=== PATIENT | female | born 1950 | race Caucasian/White ===

== ENCOUNTER 2025-03-11 21:41 | Emergency (ER) | payer MEDICARE, OTHER, SELFPAY ==
[2025-03-11 21:49] VITALS: BP 140/84
[2025-03-11 21:50] VITALS: BP 139/83
[2025-03-11 23:02] VITALS: BP 129/81
[2025-03-12 01:46] VITALS: BP 117/78
[2025-03-12 03:00] VITALS: BP 90/54
[2025-03-12 03:15] LABS: % Basophils 0.4 % (0-2); % Eosinophils 1.7 % (0-6); % Immature Granulocytes 0.3 % (0-0.5); % Lymphocytes 25.6 % (20.5-51.1); % Monocytes 9.8 % (1.7-9.3); % Neutrophils 62.2 % (42.2-75.2); Absolute Eosinophils 0.2 10^3/uL (0-0.7); Absolute Lymphocytes 2.7 10^3/uL (1.2-3.4); Absolute Neutrophils 6.6 10^3/uL (1.4-6.5); Hematocrit 36.5 % (37.0-47.0); Hemoglobin 11.5 g/dL (12.0-16.0); Mean Corp Hgb Conc. 31.5 g/dL (33.0-37.0); Mean Corpuscular Hgb 29.9 pg (27.0-31.0); Mean Corpuscular Volume 94.8 fL (81.0-99.0); Mean Platelet Volume 9.8 fL (7.4-10.4); Nucleated Red Blood Cells % 0 %; Platelet Count 238 10^3/uL (130-400); Red Blood Cell Count 3.85 10^6/uL (4.20-5.40); Red Cell Dist. Width 12.6 % (11.5-14.5); White Blood Cell Count 10.6 10^3/uL (4.8-10.8)
[2025-03-12 03:37] LABS: AST (SGOT) 13 U/L (14-36); Albumin 3.9 g/dl (3.5-5.0); Alkaline Phosphatase 58 U/L (38-126); Blood Urea Nitrogen 35 mg/dl (7-17); Carbon Dioxide 33 mmol/L (22-30); Chloride 104 mmol/L (98-107); Glucose 135 mg/dl (70-99); Total Bilirubin 0.3 mg/dl (0.2-1.3); Total Protein 6.8 g/dl (6.3-8.2); eGFR 53.39
[2025-03-12 03:47] LABS: ALT (SGPT) 13 U/L (0-35); Potassium 4.7 mmol/L (3.5-5.1); Sodium 143 mmol/L (135-145)
[2025-03-12 04:56] VITALS: BP 113/86
[2025-03-12 05:00] VITALS: BP 110/62
[2025-03-12 06:00] VITALS: BP 113/61
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
== END 2025-03-12 06:32 ==
LOC: EMR 21:41
PROVIDERS: EMERGENCY PHYSICIAN Emergency Medicine
DX: S20.213A Contusion of bilateral front wall of thorax, initial encounter (principal); S30.1XXA Contusion of abdominal wall, initial encounter; S16.1XXA Strain of muscle, fascia and tendon at neck level, initial encounter; W19.XXXA Unspecified fall, initial encounter; I12.9 Hypertensive chronic kidney disease with stage 1 through stage 4 chronic kidney disease, or unspecified chronic kidney disease; E11.22 Type 2 diabetes mellitus with diabetic chronic kidney disease; N18.9 Chronic kidney disease, unspecified; Z79.02 Long term (current) use of antithrombotics/antiplatelets; Z79.4 Long term (current) use of insulin; Z86.73 Personal history of transient ischemic attack (TIA), and cerebral infarction without residual deficits; J44.9 Chronic obstructive pulmonary disease, unspecified
CPT/HCPCS: 99284; 70450; 71260; 72125; 74177; 80053; 85025; Q9967

== ENCOUNTER 2025-03-28 07:05 | Emergency (ER) | payer OTHER, SELFPAY ==
--- NOTE | 2025-03-28 07:19 | ED.GENMED ---
History of Present Illness
General
Chief Complaint: Fall
Time Seen by Provider: 03/28/25 07:07
History of Present Illness
History of Present Illness:
74-year-old female with history of dementia, prior stroke, peripheral arterial disease, CAD, COPD, and insulin-dependent diabetes presents to the emergency department from her rehab facility after a fall. She states that she has 'PTSD' and was
having a nightmare which caused her to get out of bed and resulted in her falling to the ground. She has a wound to the occiput. She states that she fell backward and laid on 'the cold floor' for 'a little while' before coming to the hospital.
She reports headache, neck pain, and tailbone pain. Denies chest pain or shortness of breath.
Past History
Past History
ED Past Medical History: CAD, COPD, CVA, GERD, HTN, IDDM, Hypothyroidism and Other (PAD, Left diabetic foot ulcer/celulitis, anemia, chronic kidney disease)
ED Past Surgical History: Other (LLE bypass November 23, 2019)
Social History
Tobacco: Non-smoker
Review of Systems
Review of Systems
Allergies reviewed?: Yes
All Other Systems: ROS reviewed and negative except as documented in HPI and ROS
Phy Exam
Physical Exam
Physical Exam:
GEN: Chronically ill-appearing, NAD, WDWN, generally pale
Eyes: PERRLA, EOMs intact, no scleral icterus
HENT: oral mucosa moist, no JVD
Lungs: CTAB, no wheezes, rales, rhonchi, normal chest wall excursion
Cardiac: RRR, no M/R/G, no peripheral edema. Radial pulses 2+ bilat
Abdomen: S, NT, ND, NABS, no masses or hepatosplenomegaly
Neuro: Alert and oriented x 2, confused to year, moves all extremities freely, cranial nerves intact
MSK: No gross deformity or ecchymosis. No shortening or external rotation of the lower extremities, no pelvic tenderness or crepitus. Positive diffuse midline cervical spine tenderness, no midline thoracic or lumbar spine tenderness
Skin: No rashes, petechiae. Generally pale, no jaundice
Psych: Calm, cooperative, proper hygiene
Course
Orders/Labs/Results
Orders:
Orders
03/28/25 07:19
CT Cervical Spine W/o Iv Contr Urgent
Comment:
Reason For Exam: fall
CT Head W/o Iv Contrast Urgent
Comment:
Reason For Exam: fall
03/28/25 07:45
Type+Screen Urgent
Complete Blood Count/With Diff Urgent
Comprehensive Metabolic Panel Urgent
03/28/25 08:47
Case Management Consult ONCE
Case Management Consult: Other
Comment: Medicare Questions?
Abnormal Lab Results
03/28/25
07:45
RBC 3.94 L 10^6/uL
(4.20-5.40)
Hgb 11.8 L g/dL
(12.0-16.0)
MCHC 31.7 L g/dL
(33.0-37.0)
Lymphocytes % 16.3 L %
(20.5-51.1)
Carbon Dioxide 31 H mmol/L
(22-30)
BUN 39 H mg/dl
(7-17)
Creatinine 1.2 H mg/dL
(0.6-1.0)
Glucose 111 H mg/dl
(70-99)
03/28/25 07:45
03/28/25 07:45
Vital Signs
Initial and Last Documented VS:
Initial Vital Signs
BP
131/63
03/28/25 07:28
Last Documented Vital Signs
BP Pulse Ox
128/62 91
03/28/25 08:00 03/28/25 08:00
MDM/Problems Addressed
MDM/Problems Addressed:
Imaging obtained of the head and cervical spine due to patient's advanced age and reports of midline cervical pain, these images were reassuring. Labs obtained as the patient appeared grossly pale however here hemoglobin stable and labs are
reassuring. Will be discharged back to her nursing facility in stable condition
*Pulse Oximetry
Patient hypoxic: no
*Critical Care Note
Total Time (30-74mins, 75-104mins- exclusive of procedures): Not Applicable
ED Attending Note
-
Portions of this chart may have been created with voice recognition software.� Occasional wrong word or��sound alike� substitutions may have occurred due to the inherent limitations of voice recognition software.
Discharge Plan
Departure
Patient Disposition: Home (Routine Discharge)
Date of Disposition: 03/28/25
Time of Disposition: 08:48
Patient with high blood pressure during this ER visit?: No
Discharge Problem:
Fall
Instructions: Preventing falls in adults
Prescriptions:
No Action
trazodone 50 MG tablet
50 mg PO HS
levothyroxine 75 MCG tablet
75 mcg PO DAILY
clopidogrel 75 MG tablet
75 mg PO DAILY
aspirin 81 MG tablet,delayed release (DR/EC)
81 mg PO DAILY
mirtazapine 15 MG tablet
30 mg PO HS
metformin 1,000 MG tablet
1,000 mg PO BID@0800,1700
atorvastatin 10 MG tablet
10 mg PO HS
pantoprazole 40 MG tablet,delayed release (DR/EC)
40 mg PO DAILY Qty: 30 0RF
ferrous sulfate [FeroSul] 325 MG tablet
325 mg PO DAILY
acetaminophen 325 mg Tablet
325 mg PO Q6H
magnesium oxide 400 mg (241.3 mg magnesium) Tablet
400 mg PO DAILY
lidocaine 5 % Adhesive Patch,Medicated
1 patch TOPICAL DAILY
albuterol sulfate 90 mcg/actuation Hfa Aerosol Inhaler
2 puff INHALATION R Q6 PRN (Reason: sob/wheezing)
Trelegy Ellipta 100-62.5-25 mcg Blister With Device
1 inh INHALATION R DAILY
carvedilol 3.125 mg tablet
3.125 mg PO BID
gabapentin 100 mg capsule
100 mg PO Q8H
insulin lispro [Humalog KwikPen Insulin] 100 unit/mL Insulin Pen
0 - 5 sliding scale dose SC AC
Rx Instructions:
0-150= 0 unit; 151-200= 2 units; 201-250= 3 units; 251-300= 4 units; 301-350= 5 units
fesoterodine 8 mg Tablet Extended Release 24 Hr
8 mg PO HS
tolterodine 4 mg Capsule,Extended Release 24hr
4 mg PO QPM
acetaminophen 500 mg Tablet
1,000 mg PO TID Qty: 0 0RF
bupropion HCl 150 mg Tablet Extended Release 24 Hr
150 mg PO DAILY Qty: 0 0RF
oxycodone 5 mg tablet
5 mg PO Q6H PRN (Reason: moderate to severe pain) Qty: 12 0RF
aripiprazole 10 mg tablet
5 mg PO DAILY Qty: 0 0RF
Referrals:
Estela Duncan MD [Family Provider, Family Practice]
Discharge Date and Time
Print Language: JAPANESE
[2025-03-28 07:28] VITALS: BP 131/63
[2025-03-28 07:58] LABS: Hematocrit 37.2 % (37.0-47.0); Hemoglobin 11.8 g/dL (12.0-16.0); Mean Corp Hgb Conc. 31.7 g/dL (33.0-37.0); Mean Corpuscular Volume 94.4 fL (81.0-99.0); Nucleated Red Blood Cells % 0 %; Platelet Count 207 10^3/uL (130-400); Red Cell Dist. Width 12.8 % (11.5-14.5)
[2025-03-28 08:00] VITALS: BP 128/62
[2025-03-28 08:19] LABS: ALT (SGPT) 16 U/L (0-35); AST (SGOT) 21 U/L (14-36); Albumin 4.5 g/dl (3.5-5.0); Alkaline Phosphatase 70 U/L (38-126); Blood Urea Nitrogen 39 mg/dl (7-17); Calcium 9.5 mg/dl (8.4-10.2); Carbon Dioxide 31 mmol/L (22-30); Chloride 102 mmol/L (98-107); Glucose 111 mg/dl (70-99); Potassium 5.1 mmol/L (3.5-5.1); Sodium 141 mmol/L (135-145); Total Protein 7.7 g/dl (6.3-8.2); eGFR 48.09
[2025-03-28 09:07] VITALS: BP 77/59
[2025-03-28 09:09] VITALS: BP 138/61
--- NOTE | 2025-03-28 19:10 | EDRN ---
Incorrect BP noted at 0907. Patient did not have cuff on
== END 2025-03-28 09:30 | disposition home or self-care (01) ==
LOC: EMR 07:05
PROVIDERS: Physician Assistant; EMERGENCY PHYSICIAN Emergency Medicine; FAMILY PHYSICIAN Family Medicine
DX: Z04.89 Encounter for examination and observation for other specified reasons (principal); W19.XXXA Unspecified fall, initial encounter; I73.9 Peripheral vascular disease, unspecified; I25.10 Atherosclerotic heart disease of native coronary artery without angina pectoris; J44.9 Chronic obstructive pulmonary disease, unspecified; E11.51 Type 2 diabetes mellitus with diabetic peripheral angiopathy without gangrene; E11.22 Type 2 diabetes mellitus with diabetic chronic kidney disease; E11.621 Type 2 diabetes mellitus with foot ulcer; I12.9 Hypertensive chronic kidney disease with stage 1 through stage 4 chronic kidney disease, or unspecified chronic kidney disease; N18.9 Chronic kidney disease, unspecified; D63.1 Anemia in chronic kidney disease; E03.9 Hypothyroidism, unspecified; F03.90 Unspecified dementia, unspecified severity, without behavioral disturbance, psychotic disturbance, mood disturbance, and anxiety; F43.10 Post-traumatic stress disorder, unspecified; Z86.73 Personal history of transient ischemic attack (TIA), and cerebral infarction without residual deficits
CPT/HCPCS: 99284; 70450; 72125; 80053; 85025; 86850; 86900; 86901

== ENCOUNTER 2025-06-08 21:23 | Emergency (ER) | payer MEDICARE, OTHER, SELFPAY ==
[2025-06-08 21:24] VITALS: BMI 20.2
[2025-06-08 21:31] VITALS: BP 107/93
[2025-06-08 21:42] LABS: Hematocrit 35.3 % (37.0-47.0); Hemoglobin 11.4 g/dL (12.0-16.0); Mean Corp Hgb Conc. 32.3 g/dL (33.0-37.0); Mean Corpuscular Volume 93.9 fL (81.0-99.0); Nucleated Red Blood Cells % 0 %; Platelet Count 187 10^3/uL (130-400); Red Cell Dist. Width 12.5 % (11.5-14.5)
[2025-06-08 22:03] LABS: Blood Urea Nitrogen 41 mg/dl (7-17); Calcium 9.1 mg/dl (8.4-10.2); Carbon Dioxide 31 mmol/L (22-30); Chloride 102 mmol/L (98-107); Estimated Creatinine Clearance 43 ml/min; Glucose 90 mg/dl (70-99); Sodium 138 mmol/L (135-145); eGFR 53.06
[2025-06-08 22:05] LABS: COVID-19 Antigen Negative (Negative)
--- NOTE | 2025-06-08 22:55 | ED.GENMED ---
History of Present Illness
General
Chief Complaint: Breathing Problem
Source: patient, records and ambulance crew
Exam Limitations: none
Time Seen by Provider: 06/08/25 22:08
Nursing documentation reviewed up to this point in time: agreed with
History of Present Illness
History of Present Illness:
75-year-old female with a past medical history of COPD, dementia, CAD, GERD, diabetes who presents from [facility] for evaluation of shortness of breath. Although she has a listed history of dementia she is oriented here and provides
reasonable history. She says that tonight she was laying in bed trying to sleep and noticed that she was having some shortness of breath. She says that she typically sleeps with a humidifier but that it had run out and she had trouble getting
nursing staff in order to have it refilled and she thinks this contributed to her labored breathing. She says that since arriving in the ER her breathing seems to have improved a bit. She denies any chest pain. She says she has a chronic cough no
worse than usual. Chronic rhinorrhea but no other recent URI symptoms. She denies any swelling or pain in the legs. She says she has a chronic headache. She denies any other acute issues.
Past History
Past History
ED Past Medical History: CAD, COPD, CVA, GERD, HTN, IDDM, Hypothyroidism and Other (PAD, Left diabetic foot ulcer/celulitis, anemia, chronic kidney disease)
ED Past Surgical History: Other (LLE bypass November 23, 2019)
Social History
Tobacco: Non-smoker
Review of Systems
Review of Systems
All Other Systems: ROS reviewed and negative except as documented in HPI and ROS
Constitutional: Denies fever
EENT: Reports runny nose; Denies sore throat
Respiratory: Reports cough and trouble breathing
Cardiac: Denies chest pain or palpitations
ABD/GI: Denies abdominal pain or vomiting
: Denies flank pain
Musculoskeletal: Denies edema, neck pain or back pain
Neurological: Reports headache
Phy Exam
Physical Exam
Physical Exam:
General: Awake, alert, oriented x3; no acute distress
Head: Normocephalic, atraumatic
Throat: Airway intact, handling secretions
Neck: Trachea midline, no JVD noted
Lungs: Faint bilateral wheezing throughout all lung licea; no tachypnea, no hypoxia, no increased work of breathing
Heart: Regular rate and rhythm, no murmurs, gallops, or rubs appreciated
Abd: Soft, non distended, nontender
Neuro: Grossly intact
Skin: Warm and dry
Extremities: No edema in extremities, no calf tenderness, equal pulses in all extremities
Scores
Heart Failure Risk
Heart Failure Risk Score: Not Applicable
Heart Score for Chest Pain Patients
STEMI patient?: Not applicable
Withdrawal Assessment of Alcohol
Withdrawal Assessment Completed?: Not applicable
Course
Orders/Labs/Results
Orders:
Orders
06/08/25 21:30
EKG [Electrocardiogram (*1)] Urgent
Reason for Study: Shortness of Breath
EKG- Treatment ONCE
06/08/25 21:32
Basic Metabolic Panel Urgent
CBC/With Diff [Complete Blood Count/With Diff] Urgent
COVID-19 Antigen Urgent
Source: Nasal Swab
INF RAPID [Influenza A+B Rapid Molecular] Urgent
BEENA Source: Nasal Swab
Specimen Description:
06/08/25 22:12
CR Chest - 2 Views Urgent
Comment:
Reason For Exam: sob
06/08/25 22:36
NT-proBNP Urgent
06/08/25 22:38
Ipratropium/Albuterol Sulfate [Duoneb] 3 ml INH R NOW STA
MethylPREDNISolone PF [Solu-Medrol Pf] 125 mg IV NOW STA
06/08/25 22:55
Vital Signs- Treatment ONCE
Frequency: Once
Comment: TEMPERATURE
06/08/25 23:21
Troponin I Urgent
Abnormal Lab Results
06/08/25
21:32
RBC 3.76 L 10^6/uL
(4.20-5.40)
Hgb 11.4 L g/dL
(12.0-16.0)
Hct 35.3 L %
(37.0-47.0)
MCHC 32.3 L g/dL
(33.0-37.0)
Absolute Monos (auto) 0.7 H 10^3/uL
(0.1-0.6)
Carbon Dioxide 31 H mmol/L
(22-30)
BUN 41 H mg/dl
(7-17)
Creatinine 1.1 H mg/dL
(0.6-1.0)
06/08/25 21:32
06/08/25 21:32
Vital Signs
Initial and Last Documented VS:
Initial Vital Signs
Pulse Resp BP Pulse Ox
80 15 107/93 95
06/08/25 21:31 06/08/25 21:31 06/08/25 21:31 06/08/25 21:31
Last Documented Vital Signs
Pulse Resp BP Pulse Ox
76 13 138/81 94
06/09/25 00:45 06/09/25 00:45 06/09/25 00:00 06/09/25 00:45
MDM/Problems Addressed
Differential Diagnosis Includes:
Pneumonia, COPD exacerbation, anemia, CHF
MDM/Problems Addressed:
75-year-old female presents for evaluation of shortness of breath this evening. She attributes it to not having her usual humidifier tonight. She says symptoms have improved by the time of arrival in the ER although she still feels mildly short of
breath. Vitals are within acceptable range here. Physical exam as noted�she does notably have bilateral wheezing on lung auscultation. Labs were sent off in triage including a CBC which shows marginal stable anemia. CMP shows stable CKD. Added
proBNP and troponin. COVID and flu swabs were negative. Added chest x-ray. Will treat with steroid and DuoNeb for suspected COPD flare. Will monitor and reassess at the above.
proBNP marginal, troponin undetectable. Chest x-ray reviewed by me shows no acute disease. Patient's wheezing improved after DuoNeb and symptomatically she said she feels much better. Clinically she is stable for discharge suspect that she this
is an acute COPD exacerbation. She feels very comfortable with this plan. Spoke about return precautions and all questions answered.
Chronic conditions affecting care:
COPD
*Radiology
Radiology exam reviewed: preliminary read by ED provider
*Pulse Oximetry
SaO2: 95
Oxygen Mode of Delivery: Room air
Patient hypoxic: no (95%)
*EKG
Interpreted by ED Provider?: Yes
Heart Rate: 79
Rate: normal
Rhythm: sinus
[place]: normal axis
Interval: normal interval
QRS Pattern: normal QRS
Ischemia: no ischemia
*Critical Care Note
Total Time (30-74mins, 75-104mins- exclusive of procedures): Not Applicable
Data Reviewed
Source: patient, records and ambulance crew
Patient Management
Social determinants of health affecting care: Living situation (Lives in [facility] facility)
Escalation/DeEscalation of care consider admission/obs:
Offered admission�shared decision making plan for discharge
ED Attending Note
-
Portions of this chart may have been created with voice recognition software.� Occasional wrong word or��sound alike� substitutions may have occurred due to the inherent limitations of voice recognition software.
Discharge Plan
Departure
Patient Disposition: Home (Routine Discharge)
Date of Disposition: 06/09/25
Time of Disposition: 01:10
Patient with high blood pressure during this ER visit?: No
Discharge Problem:
COPD exacerbation
Instructions: COPD exacerbation in adults - ED (DC)
Prescriptions:
No Action
trazodone 50 MG tablet
50 mg PO HS
levothyroxine 75 MCG tablet
75 mcg PO DAILY
clopidogrel 75 MG tablet
75 mg PO DAILY
aspirin 81 MG tablet,delayed release (DR/EC)
81 mg PO DAILY
mirtazapine 15 MG tablet
30 mg PO HS
metformin 1,000 MG tablet
1,000 mg PO BID@0800,1700
atorvastatin 10 MG tablet
10 mg PO HS
pantoprazole 40 MG tablet,delayed release (DR/EC)
40 mg PO DAILY Qty: 30 0RF
ferrous sulfate [FeroSul] 325 MG tablet
325 mg PO DAILY
acetaminophen 325 mg Tablet
325 mg PO Q6H
magnesium oxide 400 mg (241.3 mg magnesium) Tablet
400 mg PO DAILY
lidocaine 5 % Adhesive Patch,Medicated
1 patch TOPICAL DAILY
albuterol sulfate 90 mcg/actuation Hfa Aerosol Inhaler
2 puff INHALATION R Q6 PRN (Reason: sob/wheezing)
Trelegy Ellipta 100-62.5-25 mcg Blister With Device
1 inh INHALATION R DAILY
carvedilol 3.125 mg tablet
3.125 mg PO BID
gabapentin 100 mg capsule
100 mg PO Q8H
insulin lispro [Humalog KwikPen Insulin] 100 unit/mL Insulin Pen
0 - 5 sliding scale dose SC AC
Rx Instructions:
0-150= 0 unit; 151-200= 2 units; 201-250= 3 units; 251-300= 4 units; 301-350= 5 units
fesoterodine 8 mg Tablet Extended Release 24 Hr
8 mg PO HS
tolterodine 4 mg Capsule,Extended Release 24hr
4 mg PO QPM
acetaminophen 500 mg Tablet
1,000 mg PO TID Qty: 0 0RF
bupropion HCl 150 mg Tablet Extended Release 24 Hr
150 mg PO DAILY Qty: 0 0RF
oxycodone 5 mg tablet
5 mg PO Q6H PRN (Reason: moderate to severe pain) Qty: 12 0RF
aripiprazole 10 mg tablet
5 mg PO DAILY Qty: 0 0RF
Referrals:
Estela Duncan MD [Family Provider, [facility]] - Follow up in 5-7 days
Activity Restrictions/Additional Instructions:
Thank you for visiting the Emergency Department at [facility].
1. Please schedule a follow up appointment as directed. Call first thing tomorrow morning to make an appointment.
2. If indicated, please take your medications as instructed and indicated on discharge paperwork.
3. If any of your symptoms do not improve, or persist, or become more severe within 6-12 hours, please return to the emergency department for further care.
4. Please return to the emergency department if you develop a headache, neck pain/stiffness, fever greater than 100.4F, chest pain, shortness of breath, persistent nausea, vomiting, slurred speech, difficulty walking, numbness/tingling, weakness,
signs of infection or any other symptoms that are worrisome to you.
Please call [phone] if you have any questions.
Interventions
Interventions:
*Risk Screen - Suicide Last Done: 06/08/25 21:24
*General Assessment Last Done: 06/09/25 00:10
*Neglect/Abuse Screening Last Done: 06/08/25 21:24
*ED COVID-19 Vaccine History Last Done: 06/08/25 21:24
ED- Cardiac Assessment Last Done: 06/08/25 21:29
ED- Pulmonary Assessment Last Done: 06/08/25 21:29
Discharge Date and Time
Print Language: INDONESIAN
[2025-06-08] MEDS: SOLU-MEDROL PF 125 MG IV (23:13)
[2025-06-08] MEDS: DUONEB 3 ML INH (23:13)
[2025-06-08 23:24] VITALS: BP 141/85
[2025-06-08 23:53] LABS: Troponin I < 0.012 ng/ml
[2025-06-09] VITALS: BP 138/81
[2025-06-09 01:00] VITALS: BP 134/67
== END 2025-06-09 03:45 | disposition home or self-care (01) ==
LOC: EMR 21:23
PROVIDERS: Emergency Medicine; EMERGENCY PHYSICIAN Emergency Medicine; FAMILY PHYSICIAN Family Medicine
DX: J44.1 Chronic obstructive pulmonary disease with (acute) exacerbation (principal); I25.10 Atherosclerotic heart disease of native coronary artery without angina pectoris; K21.9 Gastro-esophageal reflux disease without esophagitis; F03.90 Unspecified dementia, unspecified severity, without behavioral disturbance, psychotic disturbance, mood disturbance, and anxiety; I12.9 Hypertensive chronic kidney disease with stage 1 through stage 4 chronic kidney disease, or unspecified chronic kidney disease; E11.22 Type 2 diabetes mellitus with diabetic chronic kidney disease; N18.9 Chronic kidney disease, unspecified; E03.9 Hypothyroidism, unspecified; E11.621 Type 2 diabetes mellitus with foot ulcer; D63.1 Anemia in chronic kidney disease; Z86.73 Personal history of transient ischemic attack (TIA), and cerebral infarction without residual deficits
CPT/HCPCS: 99283; 96374; 94640; 71046; 80048; 83880; 84484; 85025; 87502; 87811; 93005

== ENCOUNTER → 2025-08-08 13:08 | Outpatient (REF) | payer MEDICARE, OTHER, SELFPAY | LOC: HWRAD 13:08 | PROVIDERS: ATTENDING PHYSICIAN Nurse Practitioner Family; FAMILY PHYSICIAN Family Medicine | DX: M81.0 Age-related osteoporosis without current pathological fracture (principal) | CPT/HCPCS: 77080 ==

== ENCOUNTER 2025-08-09 20:59 | Inpatient (IN) | payer MEDICARE, OTHER, SELFPAY ==
[2025-08-09] VITALS (20 sets, daily range): BP systolic 60–117; BP diastolic 23–83; PULSE 2–78; BMI 22.1; BMI 19.7
[2025-08-09] MEDS: DUONEB 3 ML INH (18:32)
--- NOTE | 2025-08-09 18:35 | ED.GENMED ---
History of Present Illness
<Jonathan Garcia PA-C - Last Filed: 08/09/25 19:31>
General
Chief Complaint: Breathing Problem
Time Seen by Provider: 08/09/25 18:21
History of Present Illness
History of Present Illness:
75-year-old female with history of COPD, vascular dementia, CAD, [place], and insulin-dependent diabetes presents to the emergency department for evaluation c/o. Patient arrives from a alf facility and was reportedly hypoxic on room air.
Complaints of sleep patient was taken out of the nursing facility today to eat for Thanksgiving but no other history is available at this time. She can provide no history secondary to dementia
Past History
<Jonathan Garcia PA-C - Last Filed: 08/09/25 19:31>
Past History
ED Past Medical History: CAD, COPD, CVA, GERD, HTN, IDDM, Hypothyroidism and Other (PAD, Left diabetic foot ulcer/celulitis, anemia, chronic kidney disease)
ED Past Surgical History: Other (LLE bypass November 23, 2019)
Social History
Tobacco: Non-smoker
Review of Systems
<Jonathan Garcia PA-C - Last Filed: 08/09/25 19:31>
Review of Systems
Allergies reviewed?: Yes
All Other Systems: ROS reviewed and negative except as documented in HPI and ROS
Phy Exam
<Jonathan Garcia PA-C - Last Filed: 08/09/25 19:31>
Physical Exam
Physical Exam:
GEN: Chronically ill-appearing, tachypneic,
HEENT: Oral mucosa moist, no scleral icterus
Cardiac: Tachycardic, regular
Lung: Tachypnea, no accessory muscle use, mild wheezes heard throughout all lung licea with rhonchi in the right base
MSK: No gross deformity or injuries
Skin: Good color, no pallor or jaundice, no rashes
Neuro: Alert, follows commands, pleasantly confused
Psych: Calm, cooperative
Scores
<Jonathan Garcia PA-C - Last Filed: 08/09/25 19:31>
Heart Failure Risk
Heart Failure Risk Score: Not Applicable
Sepsis
<Jonathan Garcia PA-C - Last Filed: 08/09/25 19:31>
Sepsis Screening
Sepsis Assessment: Severe Sepsis
Sepsis Screening: Lactate >2mmol/L
Sepsis Screen
Sepsis Screen: Severe Sepsis
Date: 08/09/25
Time: 19:30
<Jonathon Delgadillo DO - Last Filed: 08/09/25 22:14>
Sepsis Screen
Sepsis Screen: Severe Sepsis
Date: 08/09/25
Time: 22:12
Course
<Jonathan Garcia PA-C - Last Filed: 08/09/25 19:31>
Orders/Labs/Results
Orders:
Orders
08/09/25 18:14
ECG [Electrocardiogram (*1)] Urgent
Reason for Study: Shortness of Breath
EKG- Treatment ONCE
08/09/25 18:24
Ipratropium/Albuterol Sulfate [Duoneb] 3 ml INH R NOW ONE
08/09/25 18:32
CR Chest Portable - 1 View Urgent
Comment:
Reason For Exam: sob/fever
Reason Study Needs to be Portable: Other
08/09/25 18:33
COVID-19 Antigen Urgent
Source: Nasal Swab
Influenza A+B Rapid Molecular Urgent
BEENA Source: Nasal Swab
Specimen Description:
08/09/25 18:45
Blood Culture Urgent
BEENA Source: Blood/Venous
Specimen Description:
08/09/25 18:54
Complete Blood Count/With Diff Urgent
Lactate Level [Lactic Acid] Urgent
Venous Blood Gas Urgent
%Oxygen/Room Air: 36
Blood Culture Urgent
BEENA Source: Blood/Venous
Specimen Description:
08/09/25 19:10
Azithromycin 500 mg/250 ml [Zithromax Infusion] 500 mg in 250 ml IV NOW
CefTRIAXone [Rocephin] 1,000 mg IV NOW STA
08/09/25 19:12
Urinalysis Reflex To Culture Urgent
Date Specimen was Collected: 08/09/25
Time Specimen was Collected: 19:11
Urine Microscopic Reflex Cult Urgent
Urine Culture Urgent
BEENA Source: U
Specimen Description:
Date Specimen was Collected: 08/09/25
Time Specimen was Collected: 19:11
08/09/25 19:15
MethylPREDNISolone PF [Solu-Medrol Pf] 60 mg IV NOW STA
08/09/25 19:46
Comprehensive Metabolic Panel Urgent
Magnesium Urgent
Comment: ADD ON
Phosphorus Urgent
Comment: ADD ON
Troponin I Urgent
08/09/25 20:06
0.9% Sodium Chloride 1000 ml [Nss] 2,000 ml IV NOW STA
08/09/25 20:24
Dextrose 50%-Water [Dextrose 50% Syringe] 12.5 grams IV [id number] PRN
Dextrose 50%-Water [Dextrose 50% Syringe] 25 grams IV NOW STA
Insulin Human Regular [Novolin R] 10 units IV NOW STA
08/09/25 20:25
Bedside Glucose PRE IV Insulin- HyperK+ NOW
08/09/25 20:29
Chest/Abd/Pelvis wo Contrast CT [CT Chest/abd/pel Wo Iv Cont] Urgent
Comment: no oral contrast
Reason For Exam: sepsis hypotension
08/09/25 20:42
Venous Doppler Lwr Ext Left [US Periph Venous LOWER Ext LT] Urgent
Comment:
Reason For Exam: edema injury
08/09/25 20:45
Admit/Transfer Patient As Directed
Co-Sign Provider:
Level of Care: Inpatient admission
Assign to:: ICU
Physician / Group: perez ko
Diagnosis: shock unclear, hypoxia conc copd/pe/pna,roseanna w/ hyperkalemia, L leg swelling
Reason for Hospitalization: shock unclear, hypoxia conc copd/pe/pna,roseanna w/ hyperkalemia, L leg swelling
Expected length of stay greater than two midnights?: Yes
ELOS- Estimated Length of Stay in days: 5
I certify the patient meets the requirements for IP care: Yes
VANCOMYCIN Pharmacy to Dose [VANCOCIN Pharmacy to Dose] 1 each Pharmacy To Prepare [Call Pharmacy To Prepare] 0 ml IV PER PROTOCOL
08/09/25 20:46
Code Status As Directed
Resuscitation Status: Full Code
08/09/25 20:49
PRN Pain Medication Management As Directed
May give lesser potent ordered pain med per pt: Yes
preference::
Protocol:: Medication orders for pain may be administered in a
manner that supports deferring to patient preference
when the pt is:
- Requesting an ordered lesser potent pain medication.
Least to most potent pain medications are defined
as: acetaminophen < NSAID < tramadol < opioids
(morphine, oxycodone, hydromorphone).
- Requesting a lesser dose of the same medication IF
ORDERED.
- Requesting a less intrusive route of administration
if both routes are prescribed by the provider (PO <
IV).
08/09/25 20:51
Add On- LAB Urgent
Tests Added?: mag phos
08/09/25 21:18
ABG [Arterial Blood Gas] Urgent
%Oxygen/Room Air: 4
08/09/25 21:37
BNP [NT-proBNP] Urgent
D-Dimer Urgent
08/09/25 21:55
Bedside Glucose POST IV Insulin- HyperK+ Q1HX2,Q2HX2
08/09/25 22:54
Lactic Acid Urgent
Comment: serial lactate
08/09/25 22:55
Potassium Urgent
Comment: draw 2 hours after regular insulin IV administration
08/10/25 00:30
BMP [Basic Metabolic Panel] Urgent
Abnormal Lab Results
08/09/25 08/09/25 08/09/25
18:54 19:12 19:46
WBC 13.5 H 10^3/uL
(4.8-10.8)
RBC 3.71 L 10^6/uL
(4.20-5.40)
Hgb 11.2 L g/dL
(12.0-16.0)
Hct 35.8 L %
(37.0-47.0)
MCHC 31.3 L g/dL
(33.0-37.0)
Abs Immat Gran (auto) 0.1 H 10^3/uL
(0-0.05)
Absolute Neuts (auto) 10.3 H 10^3/uL
(1.4-6.5)
Absolute Monos (auto) 1.1 H 10^3/uL
(0.1-0.6)
Immature Gran % 0.7 H %
(0-0.5)
Neutrophils % 75.9 H %
(42.2-75.2)
Lymphocytes % 11.4 L %
(20.5-51.1)
VBG pCO2 58 H mmHg
(35-48)
VBG pO2 85 H mmHg
(30-50)
VBG HCO3 30.6 H mmol/L
(22-27)
Potassium 7.0 H* mmol/L
(3.5-5.1)
Carbon Dioxide 33 H mmol/L
(22-30)
BUN 47 H mg/dl
(7-17)
Creatinine 2.0 H mg/dL
(0.6-1.0)
Glucose 189 H mg/dl
(70-99)
Lactic Acid 2.2 H mmol/L
(0.7-2.0)
Ur Occult Blood Reflex 1+ A
(Negative)
Urine RBC 11-15 A /HPF
(0-2)
Urine Bacteria (Reflex) Moderate A
(Negative)
Urine Albumin (Reflex) 2+ A
(Neg - Trace)
POC Glucose
08/09/25
20:38
WBC
RBC
Hgb
Hct
MCHC
Abs Immat Gran (auto)
Absolute Neuts (auto)
Absolute Monos (auto)
Immature Gran %
Neutrophils %
Lymphocytes %
VBG pCO2
VBG pO2
VBG HCO3
Potassium
Carbon Dioxide
BUN
Creatinine
Glucose
Lactic Acid
Ur Occult Blood Reflex
Urine RBC
Urine Bacteria (Reflex)
Urine Albumin (Reflex)
POC Glucose 260 H mg/dl
(70-99)
08/09/25 18:54
08/09/25 19:46
Vital Signs
Initial and Last Documented VS:
Initial Vital Signs
Temp Pulse Resp BP Pulse Ox
100.9 F H 106 20 115/58 86
08/09/25 18:15 08/09/25 18:15 08/09/25 18:15 08/09/25 18:15 08/09/25 18:15
Last Documented Vital Signs
Temp Pulse Resp BP Pulse Ox
100.9 F H 96 15 104/54 96
08/09/25 18:15 08/09/25 20:45 08/09/25 20:45 08/09/25 20:45 08/09/25 20:30
<Jonathon Delgadillo DO - Last Filed: 08/09/25 22:14>
Orders/Labs/Results
Orders:
Orders
08/09/25 18:14
ECG [Electrocardiogram (*1)] Urgent
Reason for Study: Shortness of Breath
EKG- Treatment ONCE
08/09/25 18:24
Ipratropium/Albuterol Sulfate [Duoneb] 3 ml INH R NOW ONE
08/09/25 18:32
CR Chest Portable - 1 View Urgent
Comment:
Reason For Exam: sob/fever
Reason Study Needs to be Portable: Other
08/09/25 18:33
COVID-19 Antigen Urgent
Source: Nasal Swab
Influenza A+B Rapid Molecular Urgent
BEENA Source: Nasal Swab
Specimen Description:
08/09/25 18:45
Blood Culture Urgent
BEENA Source: Blood/Venous
Specimen Description:
08/09/25 18:54
Complete Blood Count/With Diff Urgent
Lactate Level [Lactic Acid] Urgent
Venous Blood Gas Urgent
%Oxygen/Room Air: 36
Blood Culture Urgent
BEENA Source: Blood/Venous
Specimen Description:
08/09/25 19:10
Azithromycin 500 mg/250 ml [Zithromax Infusion] 500 mg in 250 ml IV NOW
CefTRIAXone [Rocephin] 1,000 mg IV NOW STA
08/09/25 19:12
Urinalysis Reflex To Culture Urgent
Date Specimen was Collected: 08/09/25
Time Specimen was Collected: 19:11
Urine Microscopic Reflex Cult Urgent
Urine Culture Urgent
BEENA Source: U
Specimen Description:
Date Specimen was Collected: 08/09/25
Time Specimen was Collected: 19:11
08/09/25 19:15
MethylPREDNISolone PF [Solu-Medrol Pf] 60 mg IV NOW STA
08/09/25 19:46
Comprehensive Metabolic Panel Urgent
Magnesium Urgent
Comment: ADD ON
Phosphorus Urgent
Comment: ADD ON
Troponin I Urgent
08/09/25 20:06
0.9% Sodium Chloride 1000 ml [Nss] 2,000 ml IV NOW STA
08/09/25 20:24
Dextrose 50%-Water [Dextrose 50% Syringe] 12.5 grams IV [id number] PRN
Dextrose 50%-Water [Dextrose 50% Syringe] 25 grams IV NOW STA
Insulin Human Regular [Novolin R] 10 units IV NOW STA
08/09/25 20:25
Bedside Glucose PRE IV Insulin- HyperK+ NOW
08/09/25 20:29
Chest/Abd/Pelvis wo Contrast CT [CT Chest/abd/pel Wo Iv Cont] Urgent
Comment: no oral contrast
Reason For Exam: sepsis hypotension
08/09/25 20:42
Venous Doppler Lwr Ext Left [US Periph Venous LOWER Ext LT] Urgent
Comment:
Reason For Exam: edema injury
08/09/25 20:45
Admit/Transfer Patient As Directed
Co-Sign Provider:
Level of Care: Inpatient admission
Assign to:: ICU
Physician / Group: perez ko
Diagnosis: shock unclear, hypoxia conc copd/pe/pna,roseanna w/ hyperkalemia, L leg swelling
Reason for Hospitalization: shock unclear, hypoxia conc copd/pe/pna,roseanna w/ hyperkalemia, L leg swelling
Expected length of stay greater than two midnights?: Yes
ELOS- Estimated Length of Stay in days: 5
I certify the patient meets the requirements for IP care: Yes
VANCOMYCIN Pharmacy to Dose [VANCOCIN Pharmacy to Dose] 1 each Pharmacy To Prepare [Call Pharmacy To Prepare] 0 ml IV PER PROTOCOL
08/09/25 20:46
Code Status As Directed
Resuscitation Status: Full Code
08/09/25 20:49
PRN Pain Medication Management As Directed
May give lesser potent ordered pain med per pt: Yes
preference::
Protocol:: Medication orders for pain may be administered in a
manner that supports deferring to patient preference
when the pt is:
- Requesting an ordered lesser potent pain medication.
Least to most potent pain medications are defined
as: acetaminophen < NSAID < tramadol < opioids
(morphine, oxycodone, hydromorphone).
- Requesting a lesser dose of the same medication IF
ORDERED.
- Requesting a less intrusive route of administration
if both routes are prescribed by the provider (PO <
IV).
08/09/25 20:51
Add On- LAB Urgent
Tests Added?: mag phos
08/09/25 21:18
ABG [Arterial Blood Gas] Urgent
%Oxygen/Room Air: 4
08/09/25 21:37
BNP [NT-proBNP] Urgent
D-Dimer Urgent
08/09/25 21:55
Bedside Glucose POST IV Insulin- HyperK+ Q1HX2,Q2HX2
08/09/25 22:54
Lactic Acid Urgent
Comment: serial lactate
08/09/25 22:55
Potassium Urgent
Comment: draw 2 hours after regular insulin IV administration
08/10/25 00:30
BMP [Basic Metabolic Panel] Urgent
Abnormal Lab Results
08/09/25 08/09/25 08/09/25
18:54 19:12 19:46
WBC 13.5 H 10^3/uL
(4.8-10.8)
RBC 3.71 L 10^6/uL
(4.20-5.40)
Hgb 11.2 L g/dL
(12.0-16.0)
Hct 35.8 L %
(37.0-47.0)
MCHC 31.3 L g/dL
(33.0-37.0)
Abs Immat Gran (auto) 0.1 H 10^3/uL
(0-0.05)
Absolute Neuts (auto) 10.3 H 10^3/uL
(1.4-6.5)
Absolute Monos (auto) 1.1 H 10^3/uL
(0.1-0.6)
Immature Gran % 0.7 H %
(0-0.5)
Neutrophils % 75.9 H %
(42.2-75.2)
Lymphocytes % 11.4 L %
(20.5-51.1)
VBG pCO2 58 H mmHg
(35-48)
VBG pO2 85 H mmHg
(30-50)
VBG HCO3 30.6 H mmol/L
(22-27)
Potassium 7.0 H* mmol/L
(3.5-5.1)
Carbon Dioxide 33 H mmol/L
(22-30)
BUN 47 H mg/dl
(7-17)
Creatinine 2.0 H mg/dL
(0.6-1.0)
Glucose 189 H mg/dl
(70-99)
Lactic Acid 2.2 H mmol/L
(0.7-2.0)
Ur Occult Blood Reflex 1+ A
(Negative)
Urine RBC 11-15 A /HPF
(0-2)
Urine Bacteria (Reflex) Moderate A
(Negative)
Urine Albumin (Reflex) 2+ A
(Neg - Trace)
POC Glucose
08/09/25
20:38
WBC
RBC
Hgb
Hct
MCHC
Abs Immat Gran (auto)
Absolute Neuts (auto)
Absolute Monos (auto)
Immature Gran %
Neutrophils %
Lymphocytes %
VBG pCO2
VBG pO2
VBG HCO3
Potassium
Carbon Dioxide
BUN
Creatinine
Glucose
Lactic Acid
Ur Occult Blood Reflex
Urine RBC
Urine Bacteria (Reflex)
Urine Albumin (Reflex)
POC Glucose 260 H mg/dl
(70-99)
08/09/25 18:54
08/09/25 19:46
Vital Signs
Initial and Last Documented VS:
Initial Vital Signs
Temp Pulse Resp BP Pulse Ox
100.9 F H 106 20 115/58 86
08/09/25 18:15 08/09/25 18:15 08/09/25 18:15 08/09/25 18:15 08/09/25 18:15
Last Documented Vital Signs
Temp Pulse Resp BP Pulse Ox
100.9 F H 96 15 104/54 96
08/09/25 18:15 08/09/25 20:45 08/09/25 20:45 08/09/25 20:45 08/09/25 20:30
<Jonathan Garcia PA-C - Last Filed: 08/09/25 19:31>
MDM/Problems Addressed
MDM/Problems Addressed:
Although chest x-ray is clear lung sounds are suggestive of right basilar with focal rhonchi. She does also have wheezing suspicious for mild COPD exacerbation in the setting of acute illness. Negative COVID and flu. Due to her advanced age and
multiple comorbidities coupled with acute hypoxia she will require hospitalization for further management.
<Jonathan Garcia PA-C - Last Filed: 08/09/25 19:31>
*Pulse Oximetry
SaO2: 93
Nasal Cannula flow liters per minute: 4
Oxygen Mode of Delivery: Room air
Patient hypoxic: yes
*Critical Care Note
Total Time (30-74mins, 75-104mins- exclusive of procedures): Not Applicable
ED Attending Note
<Jonathan Garcia PA-C - Last Filed: 08/09/25 19:31>
-
Portions of this chart may have been created with voice recognition software.� Occasional wrong word or��sound alike� substitutions may have occurred due to the inherent limitations of voice recognition software.
<Jonathon Delgadillo DO - Last Filed: 08/09/25 22:14>
ED Attending Note
Patient seen and examined by attending physician: Yes
I performed the substantive portion of visit, reviewed & personally made and approve the management plan that is documented in note by myself or LETHA.: Yes
ED Attending Note:
I agree with Fletcher's note
Patient sent to the emergency room from [facility] for increased work of breathing, hypoxia and generalized weakness. Patient unable to provide very much history here.
General: Awake, does not really answer questions appropriately. Seems listless
Vitals: Low-grade fever
Head: Atraumatic
Eyes: Pupils equal, EOMI
Throat: Airway intact, no exudates, dry mucosa
Neck: Trachea midline
Lungs: Decreased breath sounds, few x-ray wheeze
Heart: Regular rate, no murmurs
Abd: Soft, Nontender, No pulsatile mass
Neuro: Grossly nonfocal
Skin: Warm, dry, no rash
Extremities: pulses equal b/l, no edema
Nebs ordered, VBG shows chronic CO2 retention with compensation. Chest x-ray does not show evidence for acute pneumonia or pulmonary edema. Suspect COPD exacerbation. Other labs still pending however.
Labs that returned showed the patient has an elevated white blood cell count at 13.5. Patient's BUN and creatinine are somewhat elevated with a BUN of 47 creatinine 2.0. However potassium is moderately high at 7.0. Patient being evaluated by the
hospitalist at the time the labs returned. Hyperkalemic medications ordered. Patient also developed some hypotension. Sepsis fluid bolus ordered. Patient will require broader spectrum IV antibiotic coverage as she is now meeting criteria for
severe sepsis.
Critical care time 36 minutes
Critical care statement: A total of 36 minutes of critical care time was provided for this patient. This includes management of unstable vital signs, evaluation of the patient at bedside, reviewing the patient's pertinent medical records, discussion
with consultants, review of old EKGs and review of pertinent medical records. This time with separate from time utilized to perform the aforementioned documented procedures
Discharge Plan
Departure
Patient Disposition: Admit
Date of Disposition: 08/09/25
Time of Disposition: 19:30
Admit to: Med/Surg
Presentation/result/management discussed w/ accepting MD/DO: Hospitalist
Discharge Problem:
Acute hypoxic respiratory failure, Pneumonia
Interventions
Interventions:
*Risk Screen - Suicide Last Done: 08/09/25 18:15
*General Assessment Last Done: 08/09/25 18:15
*Neglect/Abuse Screening Last Done: 08/09/25 18:15
*ED- Fall Risk Assessment Last Done: 08/09/25 19:30
ED- Cardiac Assessment Last Done: 08/09/25 19:00
ED- Pulmonary Assessment Last Done: 08/09/25 19:00
[2025-08-09 19:05] LABS: Venous Blood Gas B.E. 3.3 mmol/L (-4 to +4); Venous Blood Gas O2 Sat % 99.9 %
[2025-08-09 19:08] LABS: Hematocrit 35.8 % (37.0-47.0); Hemoglobin 11.2 g/dL (12.0-16.0); Mean Corp Hgb Conc. 31.3 g/dL (33.0-37.0); Mean Corpuscular Volume 96.5 fL (81.0-99.0); Nucleated Red Blood Cells % 0 %; Platelet Count 249 10^3/uL (130-400); Red Cell Dist. Width 12.8 % (11.5-14.5)
[2025-08-09 19:09] LABS: COVID-19 Antigen Negative (Negative)
[2025-08-09 19:20] LABS: Urine Character Clear (Clear)
[2025-08-09] MEDS: SOLU-MEDROL PF 60 MG IV (19:24)
[2025-08-09] MEDS: ROCEPHIN 1000 MG IV (19:25)
[2025-08-09] MEDS: ZITHROMAX INFUSION 250 IV (19:29)
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
[2025-08-09] MEDS: NSS 2000 ML IV (20:09)
[2025-08-09 20:16] LABS: ALT (SGPT) < 10 U/L (0-35); AST (SGOT) 16 U/L (14-36); Albumin 3.8 g/dl (3.5-5.0); Alkaline Phosphatase 50 U/L (38-126); Blood Urea Nitrogen 47 mg/dl (7-17); Calcium 9.0 mg/dl (8.4-10.2); Carbon Dioxide 33 mmol/L (22-30); Chloride 101 mmol/L (98-107); Estimated Creatinine Clearance 25 ml/min; Glucose 189 mg/dl (70-99); Potassium 7.0 mmol/L (3.5-5.1); Sodium 137 mmol/L (135-145); Total Protein 6.9 g/dl (6.3-8.2); eGFR 25.89
[2025-08-09 20:27] LABS: Troponin I 0.017 ng/ml
[2025-08-09] MEDS: NOVOLIN R 10 UNITS IV (20:36)
[2025-08-09 20:40] LABS: Glucose - Point of Care 260 mg/dl (70-99)
[2025-08-09] MEDS: DEXTROSE 50% SYRINGE 25 GRAMS IV (20:40)
--- NOTE | 2025-08-09 21:18 | PHA.VAN.IN ---
Assessment
- Assessment
Renal Function: SCR Appears Elevated from baseline
- Previous Dosing Experience
Previous Regimen: Vanc 1000mg Q24H
Date of Regimen: June 2020
Provided Trough of: 14
Provided AUC of: 475
Patient's SCR is: Elevated compared to previous dosing experience (SCR 2 vs 1-1.2)
Patient's weight is: Decreased compared to previous dosing experience (patient weighs approximately 10kg less)
Plan
- Plan
Initial / Loading Dose: 1500mg - administration pending
Maintenance Regimen: dosing by level
Monitoring: random 08/10 0600
MRSA Screen: Ordered per protocol
Pharmacokinetics Vancomycin I
- -
Patient Age: 75
Patient Sex: Female
Vancomycin Day #: 1
Indication: Pulmonary/Respiratory
Requesting Provider: Sha Duran
Pertinent Antimicrobial Allergies:
NKDA
Height / Weight:
Height 5 ft 8 in
Actual Weight 66 kg
- Vital Signs / Lab Results
Temp Pulse Resp BP Pulse Ox
100.9 F H 96 15 104/54 96
08/09/25 18:15 08/09/25 20:45 08/09/25 20:45 08/09/25 20:45 08/09/25 20:30
Lab Results - Hematology
08/09/25
18:54
WBC 13.5 H
Lab Results - Chemistry
08/09/25 08/09/25
18:54 19:46
BUN Cancelled 47 H
Creatinine Cancelled 2.0 H
Estimated Creat Clear Cancelled 25
Albumin Cancelled 3.8
08/09/25
18:54
Lactic Acid 2.2 H
Lab Results - Urine
08/09/25
19:12
Urine Nitrite (Reflex) Negative
Leukocyte Esterase Rfl Negative
Urine WBC (Reflex) 3-5
Ur Squamous Epith Cells 6-10
Urine Bacteria (Reflex) Moderate A
Microbiology Results
08/09/25 18:33 Influenza Types A & B (SHANA) - Final
Nasal Swab Negative for Influenza A & B, NAAT
Negative results must be combined with clinical observations
and patient history.
Nucleic Acid Amplification test (NAAT)performed on the
[employer] NOW platform.
[2025-08-09 21:24] LABS: B.E. -3.4 mmol/L; HCO3 24.6 mmol/L (21-28); O2 Saturation % 92.4 % (94-98); PCO2 60 mmHg (32-35); PO2 59 mmHg (83-108)
[2025-08-09 21:28] LABS: Magnesium 2.2 mg/dl (1.6-2.3)
[2025-08-09] MEDS: VANCOCIN 530 MG IV (21:51)
[2025-08-09] MEDS: NSS 1000 IV (21:51)
[2025-08-09 21:56] LABS: Glucose - Point of Care 167 mg/dl (70-99)
[2025-08-09 22:34] LABS: D-Dimer 0.37 ug/mlFEU (0.00-0.50)
--- NOTE | 2025-08-09 22:52 | W.PN.SEPSIS ---
Sepsis
Vital Signs
Temp Pulse Resp BP Pulse Ox
98.6 F 95 18 105/76 93
08/09/25 21:55 08/09/25 22:30 08/09/25 22:30 08/09/25 22:15 08/09/25 22:15
Physical Exam
Physical Exam:
A focused exam was performed after fluid resuscitation.
Capillary Refill
Bilateral Upper Extremity:
Forrest Time: Less than 3 sec
Bilateral Lower Extremity:
Forrest Time: Less than 3 sec
Pulse Evaluation
Bilateral Radial:
Pulse Evaluation: Present
Bilateral Dorsalis Pedis:
Pulse Evaluation: Present
[2025-08-09 22:57] LABS: Glucose - Point of Care 132 mg/dl (70-99)
--- NOTE | 2025-08-09 23:26 | PTCARENOTE ---
Addendum entered by Fern Goldman RN 08/10/25 00:12:
Patient noted to have slight left facial (mouth) droop noted on admission. PMHx CVA/TIAs. Skin intact however toes on b/l feet noted to be dry and crusty in appearance.
Original Note:
Patient admitted to ICU from ED post CT scan. Patient aao x3 upon arrival and requesting green blanket from family. Patient denies pain upon arrival, able to make needs known. Use of call guevara reviewed with pt. Dtr and family at bedside and able to
review events of the day. Dtr states patient seems to be back to normal at the moment which is much improved from earlier today when she called 911 at facility d/to change in pt status.
Patient NSR on the monitor, weak rp, weak pp, no edema noted. Lung sounds with fine crackles half way up b/l. Pox 97% on 3L n/c, no sorto or sob noted. Bs hypoactive x4. Swallow study completed, no s/s of aspiration noted during exam. IVF currently
running along with Vanco. BG 132, will recheck per protocol. Labs drawn and sent. Patient currently asleep, will continue to monitor patient closely.
--- NOTE | 2025-08-09 23:42 | PTCARENOTE ---
Patient currently lethargic and drowsy, unable to wake enough to safely swallow medications. Stephen COONEY notified. Oral medications held at this time.
[2025-08-09 23:50] LABS: Potassium 5.6 mmol/L (3.5-5.1)
[2025-08-10] VITALS (58 sets, daily range): BP systolic 96–158; BP diastolic 51–129; PULSE 2–100; BMI 19.7
[2025-08-10] MEDS: NSS 1000 IV ×2 (00:24→11:45)
[2025-08-10] MEDS: DEXTROSE 50% SYRINGE 25 GRAMS IV ×2 (00:28→06:04)
[2025-08-10] MEDS: NOVOLIN R 5 UNITS IV (00:28)
[2025-08-10 00:34] LABS: Glucose - Point of Care 167 mg/dl (70-99)
--- NOTE | 2025-08-10 00:44 | PTCARENOTE ---
Dextrose administered followed by 5u Novolin R as ordered. 1L bolus running at this time. Patient started on Bipap, no s/s of pain or discomfort noted. Will monitor.
[2025-08-10 01:17] LABS: Glucose - Point of Care 273 mg/dl (70-99)
[2025-08-10 01:54] LABS: Blood Urea Nitrogen 39 mg/dl (7-17); Calcium 7.5 mg/dl (8.4-10.2); Carbon Dioxide 26 mmol/L (22-30); Chloride 110 mmol/L (98-107); Estimated Creatinine Clearance 31 ml/min; Glucose 239 mg/dl (70-99); Potassium 5.4 mmol/L (3.5-5.1); Sodium 137 mmol/L (135-145); eGFR 33.84
[2025-08-10 02:37] LABS: Glucose - Point of Care 245 mg/dl (70-99)
[2025-08-10] MEDS: CALCIUM GLUCONATE 100 IV (02:43)
[2025-08-10 03:07] LABS: Potassium 5.7 mmol/L (3.5-5.1)
--- NOTE | 2025-08-10 03:20 | PTCARENOTE ---
No UO noted since patient arrival to ICU. Bladder scanned for 327ml at this time. Patient states she has to urinate. Purewick use reviewed. Understanding verbalized. Reviewed lab results with WEED CONTR[employer]LLER. No new orders noted. Will continue to monitor.
[2025-08-10 04:47] LABS: Glucose - Point of Care 216 mg/dl (70-99)
[2025-08-10 04:52] LABS: B.E. -1.8 mmol/L; HCO3 26.4 mmol/L (21-28); O2 Saturation % 100.0 % (94-98); PCO2 63 mmHg (32-35); PO2 161 mmHg (83-108)
[2025-08-10 05:26] LABS: ALT (SGPT) 51 U/L (0-35); AST (SGOT) 55 U/L (14-36); Albumin 3.0 g/dl (3.5-5.0); Alkaline Phosphatase 69 U/L (38-126); Blood Urea Nitrogen 36 mg/dl (7-17); Calcium 8.5 mg/dl (8.4-10.2); Carbon Dioxide 28 mmol/L (22-30); Chloride 110 mmol/L (98-107); Estimated Creatinine Clearance 35 ml/min; Glucose 197 mg/dl (70-99); Magnesium 1.9 mg/dl (1.6-2.3); Potassium 6.0 mmol/L (3.5-5.1); Sodium 137 mmol/L (135-145); Total Protein 5.6 g/dl (6.3-8.2); eGFR 39.73
[2025-08-10 05:28] LABS: INR 1.20; PT 15.7 Sec (11.4-14.6)
[2025-08-10 05:29] LABS: APTT 23.8 Sec (23.4-35.0)
[2025-08-10 05:44] LABS: Hematocrit 29.1 % (37.0-47.0); Hemoglobin 8.8 g/dL (12.0-16.0); Mean Corp Hgb Conc. 30.2 g/dL (33.0-37.0); Mean Corpuscular Volume 98.6 fL (81.0-99.0); Nucleated Red Blood Cells % 0 %; Platelet Count 177 10^3/uL (130-400); Red Cell Dist. Width 12.5 % (11.5-14.5)
[2025-08-10] MEDS: NOVOLIN R 10 UNITS IV (06:00)
[2025-08-10 06:09] LABS: Glucose - Point of Care 212 mg/dl (70-99)
[2025-08-10 07:06] LABS: Glucose - Point of Care 274 mg/dl (70-99)
[2025-08-10 07:59] LABS: Glucose - Point of Care 232 mg/dl (70-99)
[2025-08-10] MEDS: HEPARIN 5000 UNITS SC ×2 (08:00→19:27)
--- NOTE | 2025-08-10 08:07 | PTCARENOTE ---
Assumed care of Pt at shift change; Pt resting comfortably in bed with BiPAP mask on @ 15 @ 10L - RT in to assess Pt and lowered to 6L with SpO2 ~ 97%; Lungs CTA, diminished; Pt somnolent but arousable. VSS; NSS infusing into L midline @
80ml/hr; Weak pedal pulses; Purewick in place draining clear yellow urine; Pt denies pain and refused lidocaine pathes to back; Pt unable to take AM meds due to drowsiness, unable to stay awake to swallow meds. Will reassess later; Labs drawn;
BS = 232; Small abrasions noted on LFA and left upper abd;
[2025-08-10 08:27] LABS: Potassium 5.3 mmol/L (3.5-5.1)
[2025-08-10] MEDS: LIDOCAINE 4% PATCH TOPICAL (09:03)
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
--- NOTE | 2025-08-10 09:13 | W.PN.HOSP.TC ---
Today's Communication/Plan
-
.
Assessment / Plan
Assessment / Plan
Physical Exam
General:: on BIpap Appears Chronically Ill
HEENT: Anicteric and Moist mucous membranes
Respiratory: Clear
Cardiac: S1/S2
GI: Soft, Non Tender and Non Distended
Rectal: No Maroon Stools
Genito-urinary: Clear Urine
Musculoskeletal: No Cyanosis
Skin: Warm and Dry; No Jaundice
Neuro: Alert; No Slurred Speech, Facial Droop or Tremors
Hematologic/Lymphatic: No Lymphadenopathy
Psych: No Confused or Agitated, flat affect
# Acute hypoxic respiratory failure
Sepsis POA, septic shock
RLL PNA, suspect aspiration pneumonia
Known COPD
CT C/A/P done in the ED shows R base infiltrate and is otherwise unremarkable. Await formal reading.
c/w Oxygen support, on Bi pap
On IV Abx
Breathing treatment, bronchodilator Neb
f/w cultures
Appreciate ICU & ID doctors help
# Toxic metabolic encephalopathy due to hypoxia
#BISMARK on CKD IIIA
Hyperkalemia
Metabolic acidosis
K is trending down
Holding Metformin
CT showed : Kidneys: No renal or ureteral calculus. Slightly distended extrarenal pelvis, right greater than left. No obstructive uropathy
Consult nephrology
# Chronic back pain- chronic pain syndrome with opioid dependency
Holding Neurontin due to change in MS
Holding Oxycodone temporarily due to MS
#anemia of chronic disease
-no active bleeding
# PAD s/p L femoral bypass x 2
S/P proximal SFA stent/angioplasty
#Anxiety/depression
#DM type 2 with neuropathy
#CAD
#Hypothyroidism
#Essential HTN
DVT ppx on SQ heparin
#CODE STATUS
-Full code
daughter Aliya at [phone]
Total time spent to see the patient on the floor, examine the patient, review data and lab results, discuss treatment plan with patient, nursing staff around 56 minutes.
Anticipated Discharge: > 48 hours
Subjective/Interval History
-
Date of Service: August 10, 2025
She is sleeping, refusing to follow commands
no fevers
Objective Data
-
Labs:
Laboratory Results
08/09/25 08/09/25 08/10/25
21:18 23:19 01:14
WBC
Hgb
Hct
Plt Count
PT
INR
APTT
HCO3 24.6
Sodium 137
Potassium 5.6 H 5.4 H
Chloride 110 H
Carbon Dioxide 26
BUN 39 H
Creatinine 1.6 H
Glucose 239 H
Calcium 7.5 L D
Total Bilirubin
AST
ALT
Alkaline Phosphatase
08/10/25 08/10/25 08/10/25
02:36 04:41 08:03
WBC 9.8
Hgb 8.8 L D
Hct 29.1 L
Plt Count 177 D
PT 15.7 H
INR 1.20
APTT 23.8
HCO3 26.4
Sodium 137
Potassium 5.7 H 6.0 H 5.3 H
Chloride 110 H
Carbon Dioxide 28
BUN 36 H
Creatinine 1.4 H
Glucose 197 H
Calcium 8.5
Total Bilirubin 0.3
AST 55 H
ALT 51 H
Alkaline Phosphatase 69
08/10/25 08/10/25
10:00 10:08
WBC
Hgb Pending
Hct Pending
Plt Count
PT
INR
APTT
HCO3
Sodium Pending
Potassium Pending
Chloride Pending
Carbon Dioxide Pending
BUN Pending
Creatinine Pending
Glucose Pending
Calcium Pending
Total Bilirubin
AST
ALT
Alkaline Phosphatase
Vital Signs:
Vital Signs
Temp Pulse Resp BP Pulse Ox
97.6 F 85 22 117/68 93
08/10/25 07:33 08/10/25 09:00 08/10/25 09:00 08/10/25 09:00 08/10/25 09:00
I&O
08/09/25 08/10/25 08/11/25
06:59 06:59 06:59
Intake Total 370 / 450 240 / 240
Output Total 250 / 250
Balance 370 / 200 -10 / -10
--- NOTE | 2025-08-10 09:17 | CON.INTV ---
Consultation
Consultation Request
Date/Time Consultation Requested: 08/09 2302
Date/Time Consultation Performed: 08/02 830
Requesting Provider: EROS Holland
Performing Provider: Dr. Mayo; Dr. Hilliard
Reason for Consultation: ICU Management
Medical History
-
Chief Complaint: Somnolence, fatigue
History of Present Illness:
Patient is a 75-year-old female with PMH of COPD, CAD, dementia, CKD 3a, IDDM, hypertension, and hypothyroidism who is being upgraded to the [place] ICU after presenting to the ED for somnolence and fatigue. History is obtained via EMR and
daughter at the bedside, as patient is currently somnolent though comfortable appearing in bed. Patient's daughter picked her up from her correction for yesterday. Patient was in her normal mental state when picked up, but
she became fatigued and somnolent throughout the day. Daughter states patient can normally communicate when she is having a medical history, but she became lethargic and unable to communicate any issues yesterday afternoon/evening. Upon returning
patient to the correction yesterday evening, patient's pulse ox was noted to be 80%, and daughter noted patient's lips were turning blue. Daughter promptly called EMS at that time for transport to the hospital. Daughter did not note any other
complaints, including pain, cough, or recent illness. No oxygen requirement at home.
Past Medical History
Past Medical History: CAD, COPD, CVA, HTN, Hypothyroidism, NIDDM, Renal Failure and Other (Dementia)
Social History
Tobacco: Former Smoker
Alcohol: None
Drug: None
Personal:
Living: [facility]
Employment: Retired
Allergies / Home Medications
Allergies
Allergy/AdvReac Type Severity Reaction Status Date / Time
No Known Allergies Allergy Verified 08/09/25 18:21
Home Medications
�Medication �Instructions �Recorded �Confirmed �Last Taken �Type
aspirin 81 mg tablet,delayed 81 mg PO DAILY Blood clot 10/27/19 08/09/25 06/20/20 History
release prevention/tx
clopidogrel 75 mg tablet 75 mg PO DAILY Blood clot 10/27/19 08/09/25 06/20/20 History
prevention/tx
trazodone 50 mg tablet 50 mg PO HS Sleep 10/27/19 08/09/25 06/19/20 History
atorvastatin 10 mg tablet 10 mg PO HS High cholesterol 01/22/20 08/09/25 06/19/20 History
ferrous sulfate 325 mg (65 mg 325 mg PO DAILY Supplement 11/26/20 08/09/25 Unknown History
iron) tablet (FeroSul)
acetaminophen 325 mg tablet 325 mg PO Q6HPRN PRN mild pain 09/21/22 08/09/25 Unknown History
albuterol sulfate 90 mcg/actuation 2 puff inhalation R Q6HPRN PRN 09/21/22 08/09/25 Unknown History
aerosol inhaler sob/wheezing
carvedilol 3.125 mg tablet 3.125 mg PO BID Heart 09/21/22 08/09/25 Unknown History
disease/condition
fluticasone fur. 100 mcg-umeclid 1 inh inhalation R DAILY Diabetes 09/21/22 08/09/25 Unknown History
62.5 mcg-vilant 25 mcg
inhalat.powder (Trelegy Ellipta)
gabapentin 100 mg capsule 100 mg PO DAILY@1200 Neurological 09/21/22 08/09/25 Unknown History
Condition
Saccharomyces boulardii 250 mg 250 mg PO BID Gastrointestinal 08/09/25 08/09/25 Unknown History
capsule (Florastor) Issue
acetaminophen 500 mg tablet 1,000 mg PO TID mild pain 08/09/25 08/09/25 Unknown History
banana 1 ea PO DAILYPRN PRN dirrhea 08/09/25 08/09/25 Unknown History
flakes-transgalactooligosaccharide
oral powder packet (Banatrol Plus
oral powder packet)
bupropion HCl 150 mg 24 hr tablet, 150 mg PO BID Mental Health/Anxiety 08/09/25 08/09/25 Unknown History
extended release
buspirone 5 mg tablet 5 mg PO BID Mental Health/Anxiety 08/09/25 08/09/25 Unknown History
carboxymethylcellulose sodium 0.5 1 drp BOTH EYES TID Eye Condition 08/09/25 08/09/25 Unknown History
% eye drops (Refresh Tears)
cyanocobalamin (vitamin B-12) 1,000 mcg PO DAILY Supplement 08/09/25 08/09/25 Unknown History
1,000 mcg tablet
diclofenac sodium 1 % topical gel 0 g topical Q4HPRN PRN lower back 08/09/25 08/09/25 Unknown History
donepezil 5 mg tablet (Aricept) 5 mg PO HS Neurological Condition 08/09/25 08/09/25 Unknown History
fluvoxamine 100 mg tablet 100 mg PO HS Mental Health/Anxiety 08/09/25 08/09/25 Unknown History
folic acid 1 mg tablet 1 mg PO DAILY Supplement 08/09/25 08/09/25 Unknown History
gabapentin 300 mg capsule 300 mg PO BID Neurological 08/09/25 08/09/25 Unknown History
Condition
hydroxyzine HCl 10 mg tablet 10 mg PO HS Sleep 08/09/25 08/09/25 Unknown History
insulin aspart U-100 100 unit/mL 1 sliding scale dose SC AC Diabetes 08/09/25 08/09/25 Unknown History
subcutaneous solution
ipratropium bromide 21 mcg (0.03 2 spray intranasal BID Allergies 08/09/25 08/09/25 Unknown History
%) nasal spray
levothyroxine 112 mcg tablet 112 mcg PO DAILY Thyroid 08/09/25 08/09/25 Unknown History
(Synthroid)
lidocaine 4 % topical patch 3 patch topical DAILY lower back 08/09/25 08/09/25 Unknown History
magnesium hydroxide 400 mg/5 mL 2,400 mg PO HSPRN PRN if no bm by 08/09/25 08/09/25 Unknown History
oral suspension (Milk of Magnesia) 3rd day
magnesium oxide 500 mg PO BID Supplement 08/09/25 08/09/25 Unknown History
melatonin 1 mg tablet 8 mg PO HS Sleep 08/09/25 08/09/25 Unknown History
metformin 500 mg tablet 500 mg PO BID Diabetes 08/09/25 08/09/25 Unknown History
mirabegron 25 mg tablet,extended 25 mg PO DAILY Urinary Issue 08/09/25 08/09/25 Unknown History
release 24 hr (Myrbetriq)
oxycodone 5 mg tablet 10 mg PO TID Pain 08/09/25 08/09/25 Unknown History
pantoprazole 40 mg tablet,delayed 40 mg PO DAILY Gastrointestinal 08/09/25 08/09/25 Unknown History
release Issue
sumatriptan succinate 100 mg 0 mg PO .COMPLEX migraine 08/09/25 08/09/25 Unknown History
tablet (Imitrex)
Review of Systems
-
Unable to Obtain full review of systems at this time due to: Other (Patient is somnolent, lying in bed comfortably)
History Source: Family
Constitutional: Fever and Fatigue
Respiratory: Other (Perioral cyanosis; no cough)
Vitals / Labs / Diagnostic Testing
Vital Signs
Temp Pulse Resp BP Pulse Ox
97.6 F 85 22 117/68 93
08/10/25 07:33 08/10/25 09:00 08/10/25 09:00 08/10/25 09:00 08/10/25 09:00
Laboratory Results
08/09/25 08/10/25
21:18 04:41
PT 15.7 H
INR 1.20
APTT 23.8
pH 7.22 L 7.23 L
pCO2 60 H 63 H
pO2 59 L* 161 H
HCO3 24.6 26.4
O2 Delivery Level
Microbiology
08/09/25 18:33 Nasal Swab Influenza Types A & B (SHANA) - Final
Negative for Influenza A & B, NAAT
Negative results must be combined with clinical observations
and patient history.
Nucleic Acid Amplification test (NAAT)performed on the
[employer] platform.
Diagnostic Testing:
Physical Exam
-
HEENT: Normocephalic
Cardiovascular: S1/S2, Regular Rhythm, Peripheral Edema (Trace LLE edema) and Other (No M/R/G)
Respiratory: Non-Labored Respirations and Other (BiPAP in place; no accessory muscle use; diminished lung sounds)
GI: Soft, Non Distended and Non Tender
Neurology: Other (Somnolent)
Skin: Warm and Good Color
Assessment
-
Assessment: Patient 75-year-old female with PMH of COPD, CAD, dementia, CKD 3a, DM2, HTN, and hypothyroidism who is being upgraded to the ICU for acute hypoxic hypercapnic respiratory failure. Patient is currently saturating well on BiPAP 6 L 27/04.
Labs on presentation remarkable for the following: WBCs 13.5, lactate 2.2, creatinine 2.0, K 7.0. ABG this morning shows pH 7.23, pCO2 63, HCO3 26.4, pO2 161, suggesting metabolic acidosis in the setting of chronic hypercapnia/respiratory acidosis
2/[address] CAP shows suspected mild to moderate RLL pneumonia and subtle pneumonia vs atelectasis in posterior left lung base. Repeat labs overnight showed the following: Resolved leukocytosis (now 9.8), improving kidney function (Cr 1.4),
improved but persistent hyperkalemia (5.7 most recently), improved lactate (now 1.5), and Hgb 8.8 from 11.2 (suspected dilutional given copious IVF's). Suspect acute on chronic hypoxic hypercapnic respiratory failure in setting of COPD with
possible sepsis 2/2 possible RLL pneumonia. Suspect BISMARK of prerenal etiology 2/2 hypotension. Suspect hyperkalemia with etiology yet to be determined, the possibilities include BISMARK, rhabdomyolysis.
Plan:
#Acute hypoxic hypercapnic respiratory failure
#Possible sepsis
#Possible RLL pneumonia
BiPAP in place, currently on 25/01 4L
Repeat ABG, consider intubation based on result
IVF resuscitation
- 4 L boluses administered overnight
- Maintenance fluids ongoing: NS 80 mL/h
Antibiotics: Ceftriaxone, azithromycin
DuoNebs, budesonide scheduled
Blood, urine cultures pending
Trend CBC, BMP
Nephrology, ID following
#BISMARK
#Hyperkalemia
Cr 2.0 (~1.2 baseline) on presentation, improved to 1.4 with IVFs
K 7.0 on presentation, improved to 5.7 s/p insulin, IVFs
Calcium gluconate 2 g administered overnight
Insulin administered for hyperkalemia overnight
Lokelma ordered, unable to be administered
Creatinine phosphokinase pending
Labs for TTKG (urine/plasma K/osmolality) to further elucidate etiology of hyperkalemia
Nephrology following
#Lethargy
#Fatigue
CT head pending
#Type 2 diabetes
#Hyperglycemia
Moderate resistance SSI
Goal glucose 140�180
DVT PPx: Heparin
[2025-08-10 09:56] LABS: Hematocrit 29.1 % (37.0-47.0); Hemoglobin 9.1 g/dL (12.0-16.0)
[2025-08-10 10:06] LABS: Glucose - Point of Care 182 mg/dl (70-99)
[2025-08-10 10:11] LABS: Blood Urea Nitrogen 35 mg/dl (7-17); Calcium 8.5 mg/dl (8.4-10.2); Carbon Dioxide 27 mmol/L (22-30); Chloride 110 mmol/L (98-107); Estimated Creatinine Clearance 38 ml/min; Glucose 182 mg/dl (70-99); Potassium 5.7 mmol/L (3.5-5.1); Sodium 138 mmol/L (135-145); eGFR 43.42
--- NOTE | 2025-08-10 10:32 | PTCARENOTE ---
ICU resident made aware of potassium lab result, up to 5.7 from 5.3
--- NOTE | 2025-08-10 11:02 | CM ---
Addendum entered by Ted Mckoy 08/10/25 11:34:
Daughter called back to say that patient uses a wheelchair and does not use any oxygen or other respiratory device there.
Then daughter shared she is unhappy with her mom being there so asked what/ how can she moved her mom. Daughter said her mother has been telling her that she does not like it, but ignored it. When she visited prior to admission here, she saw some
things that were not great. TONI Jean suggested that she called [facility], address her concerns with D.O.N then speak to Case Mangement there. Then shared the reason for not sending mom to another facility from here is because she needs to tour
them prior then also switch LTC stuff over to new facility since she has been there for about 2 years.
Original Note:
I.A: Completed By TONI Jean.
Patient is LTC at [facility] confirmed by Liaison Rufina, left message for daughter to discuss how she lives there plus what equipment. Return referral sent. PLAN: Return to [facility] when ready.
[2025-08-10] MEDS: PULMICORT 0.5 MG INH ×2 (11:14→19:24)
[2025-08-10] MEDS: DUONEB 3 ML INH ×3 (11:14→19:24)
[2025-08-10 11:45] LABS: B.E. -0.8 mmol/L; HCO3 25.3 mmol/L (21-28); O2 Saturation % 98.9 % (94-98); PCO2 48 mmHg (32-35); PO2 69 mmHg (83-108)
[2025-08-10] MEDS: REFRESH CELLUVISC GEL BOTH EYES (11:45)
[2025-08-10 11:54] LABS: Glucose - Point of Care 228 mg/dl (70-99)
[2025-08-10] MEDS: STERILE WATER FOR INJECTION 20 ML IV (11:58)
[2025-08-10] MEDS: ROCEPHIN 2000 MG IV (11:58)
--- NOTE | 2025-08-10 12:37 | PTCARENOTE ---
Pt brought down for Head CT, RT assisted with BiPAP
--- NOTE | 2025-08-10 13:01 | PTCARENOTE ---
Returned from CT scan, Pt's mentation improving. AAO x 3 - Pt now awake, talkative, able to make needs known. Trialing off BiPAP, placed on 3L NC; Urine sample obtained by straight cath. Sputum specimen still pending, reviewed obtaining specimen
with Pt. Bedside swallow done, no issues - Water and juice provided. Will continue to monitor and assess.
[2025-08-10 13:42] LABS: Glucose - Point of Care 157 mg/dl (70-99)
--- NOTE | 2025-08-10 13:46 | W.PN.UPDATE ---
Update Note
Progress Note Update
Pt went down for CT head and when she returned she was awake, following commands, and in NAD. She wants to eat. Blood gas was repeated already and shows improved pH and improved pCO2. Pt is ok to eat as long as she passes bedside swallow eval via
RN, and if passes then will do CLD with further diet pending eval by OBSTETRICS TEACHER.
[2025-08-10] MEDS: NOVOLOG FLEXPEN-MODERATE RESISTANCE 1 UNITS SC (14:00)
[2025-08-10 14:44] LABS: Blood Urea Nitrogen 33 mg/dl (7-17); Calcium 8.4 mg/dl (8.4-10.2); Carbon Dioxide 28 mmol/L (22-30); Chloride 110 mmol/L (98-107); Estimated Creatinine Clearance 41 ml/min; Glucose 142 mg/dl (70-99); Potassium 5.6 mmol/L (3.5-5.1); Sodium 138 mmol/L (135-145); eGFR 47.80
--- NOTE | 2025-08-10 16:26 | PTOTSP ---
Speech Language Pathology
Pt seen for clinical bedside swallow evaluation. P.O. trials of puree, regular solids, and thin liquids provided. Adequate mastication, bolus formation, and A-P transit noted with no oral residue. No overt signs of aspiration. Consider
instrumental swallowing assessment to rule out silent aspiration.
Recommend:
(1) Regular solids/thin liquids
(2) General aspiration precautions
(3) Meds as tolerated
(4) VSE if still here Monday 08/13 to rule out silent aspiration
(5) SORTER LAUNDRY ARTICLES to continue to follow
[2025-08-10] MEDS: REFRESH CELLUVISC GEL 1 DROPS BOTH EYES ×2 (17:04→21:07)
[2025-08-10 17:30] LABS: Glucose - Point of Care 145 mg/dl (70-99)
[2025-08-10] MEDS: NOVOLOG FLEXPEN-MODERATE RESISTANCE SC (18:02)
[2025-08-10] MEDS: SENOKOT-S 1 TABLET PO ×2 (18:04→19:27)
--- NOTE | 2025-08-10 18:12 | PTCARENOTE ---
Pt seen by speech, ordered regular solids and thin liquids. Dinner ordered and Pt ate without issue
[2025-08-10] MEDS: ZITHROMAX INFUSION 250 IV (19:26)
[2025-08-10] MEDS: NEURONTIN 300 MG PO (19:27)
[2025-08-10] MEDS: COREG 3.125 MG PO (19:28)
[2025-08-10] MEDS: FLORASTOR 250 MG PO (19:29)
[2025-08-10] MEDS: BUSPAR 5 MG PO (19:29)
[2025-08-10] MEDS: WELLBUTRIN XL (24 hour extended release) 150 MG PO (19:29)
--- NOTE | 2025-08-10 20:00 | PTCARENOTE ---
Received pt. at 1900. Pt. currently in bed. Confused, agitated, uncooperative. Pt. complaining about breathing treatment. Says she does not want to wear mask even though treatment is for a short period. Also stating she does not want to wear bipap
mask tonight. Explained plan of care multiple times. Educated pt, on why she needs the breathing treatment and bipap mask HS. Pt. redirected multiple times. Heart rhythm sinus. Blood pressure normotensive. Currently on nasal cannula. Lungs sound
diminished. PO diet is ordered. Pt. took meds with apple sauce without issue. Incontinent of urine, purewick drainage device in place. Skin as documented. Vital signs stable at this time.
[2025-08-10] MEDS: MELATONIN 9 MG PO (21:03)
[2025-08-10] MEDS: DESYREL 50 MG PO (21:03)
[2025-08-10] MEDS: LUVOX 100 MG PO (21:04)
[2025-08-10] MEDS: ARICEPT 5 MG PO (21:04)
[2025-08-10] MEDS: ATARAX 10 MG PO (21:04)
[2025-08-11] VITALS (20 sets, daily range): BP systolic 108–157; BP diastolic 61–97; PULSE 4–81; O2SAT 93; BMI 20.5
--- NOTE | 2025-08-11 | PTCARENOTE ---
Pt. currently on bipap mask. Appears to be sleeping comfortably. Vital signs stable at this time.
[2025-08-11 03:35] LABS: Venous Blood Gas B.E. 1.2 mmol/L (-4 to +4); Venous Blood Gas O2 Sat % 100.0 %; Venous Blood Gas O2 Therapy 2L/min
[2025-08-11 03:36] LABS: Hematocrit 26.4 % (37.0-47.0); Hemoglobin 8.2 g/dL (12.0-16.0); Mean Corp Hgb Conc. 31.1 g/dL (33.0-37.0); Mean Corpuscular Volume 94.3 fL (81.0-99.0); Nucleated Red Blood Cells % 0 %; Platelet Count 178 10^3/uL (130-400); Red Cell Dist. Width 12.7 % (11.5-14.5)
--- NOTE | 2025-08-11 03:45 | PTCARENOTE ---
Pt. assessment remains unchanged. Confused and uncooperative at times, but able to redirect. AM labs drawn. Vital signs stable at this time.
[2025-08-11 03:50] LABS: ALT (SGPT) 36 U/L (0-35); AST (SGOT) 25 U/L (14-36); Albumin 2.9 g/dl (3.5-5.0); Alkaline Phosphatase 60 U/L (38-126); Blood Urea Nitrogen 29 mg/dl (7-17); Calcium 8.5 mg/dl (8.4-10.2); Carbon Dioxide 27 mmol/L (22-30); Chloride 108 mmol/L (98-107); Estimated Creatinine Clearance 45 ml/min; Glucose 135 mg/dl (70-99); Magnesium 1.7 mg/dl (1.6-2.3); Potassium 5.3 mmol/L (3.5-5.1); Sodium 139 mmol/L (135-145); Total Protein 5.5 g/dl (6.3-8.2); eGFR 53.06
[2025-08-11 04:29] LABS: Cortisol, Random 9.7 ug/dl
[2025-08-11] MEDS: SYNTHROID 112 MCG PO (06:08)
[2025-08-11] MEDS: MAGNESIUM SULFATE 102 GRAMS IV (06:08)
--- NOTE | 2025-08-11 07:10 | PTCARENOTE ---
Pt used call guevara and yelling out with her BiPap mask that she is wet. She was provided pericare, mouth care, and purwick replaced. She is very demanding, forgetful, and persistent with rapid firing repetitive requests. She was also provided
reassurance that we would ensure all her needs are met. She attempted to call her daughter Aliya multiple times. Lungs with fine late inspiratory crackles in the bases. No shortness of breath. C/O hunger. Voiding large amounts of clear yellow urine
via purwick. Left midline w/nss kvo. Left FA and right FA protective catheters both flushed and patent. Weak pedal pulses. Left LE> Right LE. Safe environment maintained.
[2025-08-11 07:36] LABS: Glucose - Point of Care 163 mg/dl (70-99)
[2025-08-11] MEDS: NOVOLOG FLEXPEN-MODERATE RESISTANCE 1 UNITS SC ×3 (07:37→16:18)
[2025-08-11] MEDS: DUONEB 3 ML INH (07:52)
[2025-08-11] MEDS: PULMICORT 0.5 MG INH (07:54)
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
[2025-08-11] MEDS: VITAMIN B-12 1000 MCG PO (07:57)
[2025-08-11] MEDS: SENOKOT-S 1 TABLET PO ×2 (07:57→19:31)
[2025-08-11] MEDS: ASPIR LOW (ENTERIC COATED) 81 MG PO (07:57)
[2025-08-11] MEDS: NEURONTIN 300 MG PO ×2 (07:57→19:31)
[2025-08-11] MEDS: FOLVITE 1 MG PO (07:58)
[2025-08-11] MEDS: PLAVIX 75 MG PO (07:58)
[2025-08-11] MEDS: BUSPAR 5 MG PO ×2 (07:58→19:30)
[2025-08-11] MEDS: PROTONIX 40 MG PO (07:58)
[2025-08-11] MEDS: WELLBUTRIN XL (24 hour extended release) 150 MG PO ×2 (07:59→19:30)
[2025-08-11] MEDS: COREG 3.125 MG PO ×2 (07:59→19:30)
[2025-08-11] MEDS: FLORASTOR 250 MG PO ×2 (08:00→19:31)
[2025-08-11] MEDS: HEPARIN 5000 UNITS SC ×2 (08:00→19:31)
[2025-08-11] MEDS: REFRESH CELLUVISC GEL 1 DROPS BOTH EYES ×3 (08:02→21:03)
--- NOTE | 2025-08-11 08:05 | W.PN.INTV ---
Today's Communication / Plan
Recommendations
Okay to resume Symbicort + Spiriva; restart Trelegy upon discharge
Up OOB as tolerated
PT/OT
Diet as per [employer]; VFSS on Wednesday if patient still hospitalized (which I suspect she will be)
Restart oxycodone but lower frequency from TID to BID as her initial CO2 retention may have been triggered from her chronic narcotic use with possible overdose
Pain control - may need to use a multimodal approach - defer this to the hospitalist
Antibiotics per ID
Follow-up cultures
Patient is stable for downgrade out of ICU to telemetry - Pulmonary service will continue to follow along
Assessment
-
75-year-old female with a past medical history of neurogenic bladder with VOO and DSD, left heel pressure ulcer, DM type II, hypothyroidism, hypertension, history of left lower limb cellulitis, bladder incontinence, chronic lower back pain, history
of UTI, history of dysphagia, history of COPD, anxiety, history of bacteremia, PVD and history of ID who presents from [facility] with low oxygen levels. Patient is a poor historian due to dementia. Patient went to her family's house for
Thanksgiving, and appeared fatigued and slept for most of the day. This persisted until she returned back to her facility, at which point she appeared to have blue lips and her daughter called 911 and patient was brought here to the ER for further
evaluation. Initially in the ER, patient was febrile to 100.9 �F (via oral thermometer), pulse rate 106, respiratory rate 20, BP 115 over the 8 and she was initially saturating 86% on room air, which improved to 93-95% on 4 L/min. She did become
hypotensive about 1 hour later with pressures in the 70�80s/20-30s. Initial blood work showed leukocytosis to 13.5, anemia at 11.2, and absolute eosinophil count of 500, initial blood gas showed mild acute on chronic hypercapnia with pH 7.33, pCO2
58. Initial potassium was 7.0, with serum bicarbonate level 33, creatinine 2.0, glucose 189, lactate 2.2, and troponin 0.017 with proBNP 821. Flu swab negative and COVID-19 antigen negative. Blood cultures and urine cultures collected. CXR
showed no evidence of an acute cardiopulmonary process. CT chest/abdomen/pelvis was obtained showing a suspected right lower lobe pneumonia with reactive mild inguinal adenopathy and no obstructive uropathy. Also constipation with moderate colonic
fecal burden without bowel obstruction. In the ER she was given 2 L IVF with NS 0.9%, 60 mg Solu-Medrol, DuoNebs, 10 units regular insulin with 1 amp D50, Rocephin and Zithromax. Due to her blood gas findings with concern for acute hypercapnia,
she was placed onto BiPAP and then admitted to the ICU for further care. Associate Relations Specialist service consulted for additional management/recommendations.
Impression:
#Acute on chronic hypercapnic respiratory failure requiring continuous BiPAP - acute component now resolved and she is on room air with mental status back to baseline
#Acute hypoxic respiratory failure - markedly improved
#Right lower lobe pneumonia, likely due to aspiration
#BISMARK superimposed on CKD (baseline creatinine approximately 1.2) with acute on chronic hyperkalemia (baseline K 4.7 - 5.1)
#Acute on chronic anemia (baseline Hb 10 � 11.5)
#Transaminitis (mild) - improving
#History of dementia
#PAD
#DM type II
#History of COPD (does not follow us in [facility] office)
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
Plan:
- Patient initially transferred to the ICU due to acute on chronic hypercapnia with poor mental status likely due to CO2 narcosis
- Unclear if she developed this due to her narcotic usage with possible over-dose, or if she had an underlying infection (i.e. pneumonia) that then contributed to her AMS
- Patient has markedly improved, now awake and alert, back to her baseline
- CT head on 08/10 showed no acute intracranial abnormalities besides a prior right sided parietal lobe infarct
- Maintain SpO2 88-95%, using supplemental O2 if needed
- Trial her off BiPAP tonight to see if her blood gas is stable tomorrow AM
- If she develops recurrent acute respiratory acidosis after not using BiPAP overnight, then she will need to be discharged back to [facility] with BiPAP/NIV
- Aspiration precautions, keeping HOB >30-45�
- Seen by [employer] on 08/10, and cleared for regular solids/thin liquids. Plan is to check a video swallow evaluation on 08/13 if the patient is still hospitalized to rule out silent aspiration
- Given concern for RLL CAP, continue with antibiotics with Cefdnir + Zithromax s/p rocephin x 2 doses and IV vanco x1 dose
- Follow-up blood cultures (NGTD); urine antigens for Legionella + strep pneumonia both negative; check sputum culture if patient can produce a decent sample
- MRSA swab is negative\\
- ID consulted and recs appreciated
- Trend WBC and monitor temperature curve
- Patient is prescribed Trelegy as an outpatient
- We had initially changed her to DuoNebs and budesonide because she was too altered to properly take MDI or SMI
- Now that she is back to her baseline mental status, ok to start Symbicort and Spiriva with prn albuterol; resume Trelegy upon discharge
- prn nebulized bronchodilators - not currently bronchospastic
- Trend serum creatinine and monitor UOP (she has a purewick on currently as she is incontinent to urine)
- Considering she has chronic hyperkalemia,transtubular potassium gradient checked, and was 4, indicating hypoaldosteronism. Cortisol level checked this morning and was 9.7 (which is WNL); aldosterone and renin levels are pending. She may need to
start florinef +/- diuretics and/or cation-exchange resins)
- Renally dose all meds; trend [K] level, temporizing with insulin/D50 if needed; would be careful giving Kayexalate as she had constipation with moderate fecal burden seen on CT A/P
- Continue bowel regimen given chronic narcotic use, as she had constipation seen on CT A/P
- Ok to resume her oxyocone but resume at 10mg BID instead of TID - need to find a balance between treating her pain without increasing risk of CO2 retention
- Maintain MAP>65
- Replete electrolytes with K>4, Mg>2
- Maintain euglycemia with goal BG 140-180; HbA1c: 7.3 on 09/20/2022 - -> A1C 7.2% (08/11/2025)
- Trend H/H and transfuse if needed to keep Hb>7g/dL; keep plt>20k, unless there is concern for bleeding then keep plt>50k
- Incentive spirometer encouraged 10x per hour for at least 4 hrs a day
- DVT ppx: HSQ
Patient is stable for downgrade out of ICU to telemetry. Pulmonary service will continue to follow along.
Total time spent today was 62 minutes for this encounter. Time includes reviewing laboratory test/imaging results, reviewing pertinent medical records, obtaining and reviewing medical history, performing an appropriate exam, ordering medications,
tests and procedures. Time also includes documentation of this encounter, coordinating patient care and communicating with other healthcare professionals. Total time does not include separately billed tests performed on this date of service.
Subjective Dataa
Subjective Data
Date of Service:
Date of Service: August 11, 2025
Chief Complaint: Associate Relations Specialist Follow Up
Subjective:
Patient was seen and evaluated this morning. Patient wore BiPAP overnight on 15/5 cmH2O bled with 2 L/min. Patient's daughter, Lauren is at bedside in addition to another family member, Lara. Patient currently saturating 95% on room air, with
heart rate 78 and BP 145/81. She says that she feels wet in her groin area although the nurses had just cleaned her. She also endorses left-sided shoulder pain otherwise denies chest pain or shortness of breath.
Review of Systems
General: Other (Negative unless mentioned above)
Objective Data
Data Reviewed
Vital Signs / I&O / Oxygen:
Vital Signs
Temp Pulse Resp BP Pulse Ox
98.4 F 80 15 156/84 92
08/11/25 07:27 08/11/25 07:59 08/11/25 07:55 08/11/25 07:59 08/11/25 07:55
Intake and Output
08/10/25 08/11/25 08/12/25
06:59 06:59 06:59
Intake Total 370 / 450 2030 / 2040 70 / 70
Output Total 2200 / 2850 650 / 650
Balance 370 / 200 -170 / -810 -580 / -580
SaO2 92
Nasal Cannula flow liters per 2
minute
Physical Exam
General: Respiratory Distress (negative), Comfortable, Chills (negative) and Sweats (negative)
HEENT: Normocephalic and Anicteric
Cardiovascular: S1-S2 and Peripheral Edema (negative)
Respiratory: Wheeze (negative), Crackles (R-base), Rhonchi (negative), Non-Labored Respirations, Stridor (negative) and Other (Diminished breath sounds bilaterally due to poor inspiratory effort)
GI: Soft, Non Distended, Non Tender and Normal Bowel Sounds
Neurology: Awake, Alert, Tremors (negative) and Other (Repetitive)
Skin: Warm, Dry, Cyanosis (negative) and Jaundice (negative)
Labs/Micro/Reports
Lab Data
08/11/25 03:14
08/11/25 03:14
Laboratory Results
08/10/25
11:34
pH 7.33 L
pCO2 48 H
pO2 69 L
HCO3 25.3
O2 Delivery Level
Microbiology
08/09/25 18:54 Blood/Venous Blood Culture - Preliminary
No Growth in 24 hours- Final report to follow
08/09/25 18:45 Blood/Venous Blood Culture - Preliminary
No Growth in 24 hours- Final report to follow
08/09/25 21:37 Nose Nasal Screen MRSA (PCR) - Final
MRSA not detected - performed by PCR methodology.
08/09/25 18:33 Nasal Swab Influenza Types A & B (SHANA) - Final
Negative for Influenza A & B, NAAT
Negative results must be combined with clinical observations
and patient history.
Nucleic Acid Amplification test (NAAT)performed on the
[employer] platform.
[2025-08-11] MEDS: LIDOCAINE 4% PATCH TOPICAL (08:20)
[2025-08-11] MEDS: ZITHROMAX 500 MG PO (08:20)
--- NOTE | 2025-08-11 09:01 | W.PN.HOSP.TC ---
Today's Communication/Plan
-
.
Assessment / Plan
Assessment / Plan
Physical Exam
General:: not in distress, off BIpap Appears Chronically Ill. Talking on the phone with family.
HEENT: Anicteric and Moist mucous membranes
Respiratory: Clear
Cardiac: S1/S2
GI: Soft, Non Tender and Non Distended
Rectal: No Maroon Stools
Genito-urinary: Clear Urine
Musculoskeletal: No Cyanosis
Skin: Warm and Dry; No Jaundice
Neuro: Alert, awake, oriented now, following commands, ; No Slurred Speech, Facial Droop or Tremors
Hematologic/Lymphatic: No Lymphadenopathy
Psych: No Confused or Agitated, flat affect
# Acute hypoxic respiratory failure
Sepsis POA, septic shock
RLL PNA, suspect aspiration pneumonia
Known COPD
CT C/A/P done in the ED shows R base infiltrate and is otherwise unremarkable. Await formal reading.
c/w Oxygen support, on Bi pap
On IV Abx
Breathing treatment, bronchodilator Neb
f/w cultures
Appreciate ICU & ID doctors help
# Toxic metabolic encephalopathy due to hypoxia
#BISMARK on CKD IIIA
Hyperkalemia
Metabolic acidosis
K is trending down
Holding Metformin
CT showed : Kidneys: No renal or ureteral calculus. Slightly distended extrarenal pelvis, right greater than left. No obstructive uropathy
Consult nephrology
# Chronic back pain- chronic pain syndrome with opioid dependency
Holding Neurontin due to change in MS
Holding Oxycodone temporarily due to MS
#anemia of chronic disease
-no active bleeding
# PAD s/p L femoral bypass x 2
S/P proximal SFA stent/angioplasty
#Anxiety/depression
#DM type 2 with neuropathy
#CAD
#Hypothyroidism
#Essential HTN
DVT ppx on SQ heparin
#CODE STATUS
-Full code
daughter Aliya at [phone]
Total time spent to see the patient on the floor, examine the patient, review data and lab results, discuss treatment plan with patient, nursing staff around 56 minutes.
Anticipated Discharge: > 48 hours
Subjective/Interval History
-
Date of Service: August 11, 2025
No complaints
Wants her pain medicine
Objective Data
-
Labs:
Laboratory Results
08/11/25
03:14
WBC 8.4
Hgb 8.2 L
Hct 26.4 L
Plt Count 178
Sodium 139
Potassium 5.3 H
Chloride 108 H
Carbon Dioxide 27
BUN 29 H
Creatinine 1.1 H
Glucose 135 H
Calcium 8.5
Total Bilirubin < 0.1 L
AST 25
ALT 36 H
Alkaline Phosphatase 60
Vital Signs:
Vital Signs
Temp Pulse Resp BP Pulse Ox
98.4 F 80 15 156/84 92
08/11/25 07:27 08/11/25 07:59 08/11/25 07:55 08/11/25 07:59 08/11/25 07:55
I&O
08/10/25 08/11/25 08/12/25
06:59 06:59 06:59
Intake Total 370 / 450 2030 / 2040 70 / 70
Output Total 2200 / 2850 650 / 650
Balance 370 / 200 -170 / -810 -580 / -580
[2025-08-11 09:22] LABS: Glycohemoglobin (HgbA1c) 7.2 % (4.0-5.9)
[2025-08-11] MEDS: OMNICEF 300 MG PO ×2 (09:28→19:30)
--- NOTE | 2025-08-11 09:44 | PTCARENOTE ---
Pt called for something for anxiety. All morning medications administered. She has not had Oxycodone in at least 24hour. Dr. White and Dr. Hilliard notified via TC. She took her PO antibiotics without difficulty in applesauce.
--- NOTE | 2025-08-11 10:43 | CM ---
Chart reviewed and spoke with ICU nurse
Plan to change IV abx to po
Will continue to follow up for dcp needs
DC back to [facility]
[2025-08-11] MEDS: DUONEB INH (11:14)
--- NOTE | 2025-08-11 11:41 | W.PN.NEPH.PH ---
Today's Communication / Plan
-
follow BMP
Assessment/Plan
-
Assessment
Sepsis
BISMARK
Hyperkalemia
Right pneumonia
hypotension
Diabetes mellitus type 2
COPD
Plan
cap IV fluids saline
Follow BMP
Treat potassium medically prn
-
-
Date of Service: August 11, 2025
CC / HPI / ROS
-
Chief Complaint:
BISMARK
History of Present Illness:
BISMARK/Cr down to 1.1
K lower 5.3
BP stable
Review of Systems:
no CP/SOB
Labs
-
Labs:
WBC 8.4 10^3/uL (4.8-10.8) 08/11/25 03:14
RBC 2.80 10^6/uL (4.20-5.40) L 08/11/25 03:14
Hgb 8.2 g/dL (12.0-16.0) L 08/11/25 03:14
Hct 26.4 % (37.0-47.0) L 08/11/25 03:14
Plt Count 178 10^3/uL (130-400) 08/11/25 03:14
Sodium 139 mmol/L (135-145) 08/11/25 03:14
Potassium 5.3 mmol/L (3.5-5.1) H 08/11/25 03:14
Chloride 108 mmol/L (98-107) H 08/11/25 03:14
Carbon Dioxide 27 mmol/L (22-30) 08/11/25 03:14
BUN 29 mg/dl (7-17) H 08/11/25 03:14
Creatinine 1.1 mg/dL (0.6-1.0) H 08/11/25 03:14
eGFR 53.06 08/11/25 03:14
Glucose 135 mg/dl (70-99) H 08/11/25 03:14
Calcium 8.5 mg/dl (8.4-10.2) 08/11/25 03:14
Phosphorus 2.8 mg/dl (2.5-4.5) 08/11/25 03:14
Kei-M-Imdtsbvdclc Pept 821 pg/ml 08/09/25 21:37
Albumin 2.9 g/dl (3.5-5.0) L 08/11/25 03:14
Physical Exam
-
Vital Signs:
Vital Signs
Temp Pulse Resp BP Pulse Ox
98.5 F 81 13 146/80 93
08/11/25 11:21 08/11/25 11:00 08/11/25 11:00 08/11/25 11:01 08/11/25 11:00
Cardiovascular:: Regular rate and rhythm
Respiratory:: Bilateral: Coarse
Lung Excursion:: Normal
Abdomen:: Nontender and Soft
Bowel Sounds:: Normal
Extremity Edema:: None: Bilateral:
--- NOTE | 2025-08-11 11:45 | PTCARENOTE ---
Encouraged OOB to the chair. She was able to transfer to the chair with moderate exertion. RR 41. HR 101. She maintained her oxygen saturation of of 94-96%. Harsh moist productive cough. She did verbalize that she read the entire HF packet I
provided in the morning. She also is aware that I have assigned her HF videos to watch on the TV which should be a reinforcement of what she read. Again I informed her that she has limited time here in the hospital to gain a full understanding of
HF. She verbalized her understanding. Breath sounds remains coarse throughout. She voided only 400ml's of ave urine since Lasix this morning. She did state that she will have difficulty with fluids because she drinks #4 33 oz of water/day in
addition to along a soniya and genna at night. Supportive care given. SHe remains in the chair and was able to brush her teeth.
[2025-08-11 11:54] LABS: Glucose - Point of Care 173 mg/dl (70-99)
[2025-08-11] MEDS: STERILE WATER FOR INJECTION IV (12:16)
[2025-08-11] MEDS: ROXICODONE 10 MG PO ×2 (12:21→21:00)
[2025-08-11] MEDS: TYLENOL 325 MG PO (12:22)
[2025-08-11] MEDS: NEURONTIN 100 MG PO (12:22)
--- NOTE | 2025-08-11 15:00 | PTCARENOTE ---
Pt called RN into the room, reporting she is sad and misses her roommate in [facility]. She told me that she talked to her earlier on the phone and that she really misses her. Supportive care provided. RN remained with her until she was calm.
[2025-08-11 16:23] LABS: Glucose - Point of Care 169 mg/dl (70-99)
[2025-08-11] MEDS: TYLENOL 1000 MG PO (17:25)
--- NOTE | 2025-08-11 18:04 | PTCARENOTE ---
S/P large formed BM on bedpan. Pericare provided, purwick replaced.
[2025-08-11] MEDS: MAGNESIUM OXIDE 400 MG PO (19:30)
--- NOTE | 2025-08-11 20:00 | PTCARENOTE ---
Received pt. at 1900. Pt. currently in bed. Awake and alert. Forgetful, but cooperative at the moment. C/o pain/discomfort. PRN medication given, see MAR. Afebrile. Heart rhythm sinus. Blood pressure normotensive. Currently on nasal cannula. Lungs
sound diminished. PO diet is ordered. Bm earlier today per previous RN. Incontinent of urine. Purewick device in place. Skin as documented. Discussed plan of care with patient. Vital signs stable at this time.
[2025-08-11] MEDS: ATROVENT NEBULES 0.5 MG INH (20:03)
[2025-08-11] MEDS: SYMBICORT 80/4.5 MCG INHALER 2 PUFF INH (20:03)
[2025-08-11] MEDS: DESYREL 50 MG PO (21:01)
[2025-08-11] MEDS: MELATONIN 9 MG PO (21:02)
[2025-08-11] MEDS: LUVOX 100 MG PO (21:02)
[2025-08-11] MEDS: ARICEPT 5 MG PO (21:03)
[2025-08-11] MEDS: ATARAX 10 MG PO (21:03)
[2025-08-12 01:14] VITALS: BP 120/62
[2025-08-12 04:04] VITALS: BP 140/65
[2025-08-12] MEDS: TYLENOL 1000 MG PO (04:29)
[2025-08-12] MEDS: SYNTHROID 112 MCG PO (04:30)
[2025-08-12 04:51] LABS: Venous Blood Gas B.E. 3.5 mmol/L (-4 to +4); Venous Blood Gas O2 Sat % 100.0 %
[2025-08-12 05:19] LABS: Hematocrit 31.6 % (37.0-47.0); Hemoglobin 9.9 g/dL (12.0-16.0); Mean Corp Hgb Conc. 31.3 g/dL (33.0-37.0); Mean Corpuscular Volume 93.8 fL (81.0-99.0); Nucleated Red Blood Cells % 0 %; Platelet Count 216 10^3/uL (130-400); Red Cell Dist. Width 12.6 % (11.5-14.5)
[2025-08-12 05:28] LABS: ALT (SGPT) 32 U/L (0-35); AST (SGOT) 20 U/L (14-36); Albumin 3.2 g/dl (3.5-5.0); Alkaline Phosphatase 63 U/L (38-126); Blood Urea Nitrogen 23 mg/dl (7-17); Calcium 9.0 mg/dl (8.4-10.2); Carbon Dioxide 31 mmol/L (22-30); Chloride 106 mmol/L (98-107); Estimated Creatinine Clearance 51 ml/min; Glucose 133 mg/dl (70-99); Magnesium 1.8 mg/dl (1.6-2.3); Potassium 4.6 mmol/L (3.5-5.1); Sodium 138 mmol/L (135-145); Total Protein 6.1 g/dl (6.3-8.2); eGFR 59.49
[2025-08-12 05:45] VITALS: BMI 19.8
[2025-08-12] MEDS: SYMBICORT 80/4.5 MCG INHALER 2 PUFF INH (07:24)
[2025-08-12] MEDS: SPIRIVA RESPIMAT 2.5 MCG 2 PUFF INH (07:24)
[2025-08-12 07:39] VITALS: BP 157/75
[2025-08-12] MEDS: COREG 3.125 MG PO (07:39)
[2025-08-12] MEDS: BUSPAR 5 MG PO (07:39)
[2025-08-12] MEDS: ASPIR LOW (ENTERIC COATED) 81 MG PO (07:39)
[2025-08-12] MEDS: FEOSOL 325 MG PO (07:40)
[2025-08-12] MEDS: FOLVITE 1 MG PO (07:41)
[2025-08-12] MEDS: FLORASTOR 250 MG PO (07:41)
[2025-08-12] MEDS: HEPARIN 5000 UNITS SC (07:41)
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
[2025-08-12] MEDS: LIDOCAINE 4% PATCH 3 PATCH TOPICAL (07:42)
[2025-08-12] MEDS: MAGNESIUM OXIDE 400 MG PO (07:42)
[2025-08-12] MEDS: NEURONTIN 300 MG PO (07:43)
[2025-08-12] MEDS: PLAVIX 75 MG PO (07:43)
[2025-08-12] MEDS: OMNICEF 300 MG PO (07:43)
[2025-08-12] MEDS: WELLBUTRIN XL (24 hour extended release) 150 MG PO (07:43)
[2025-08-12] MEDS: PROTONIX 40 MG PO (07:43)
[2025-08-12] MEDS: REFRESH CELLUVISC GEL 1 DROPS BOTH EYES (07:43)
[2025-08-12] MEDS: ZITHROMAX 500 MG PO (07:44)
[2025-08-12] MEDS: ROXICODONE 10 MG PO (07:44)
[2025-08-12] MEDS: SENOKOT-S 1 TABLET PO (07:44)
[2025-08-12] MEDS: VITAMIN B-12 1000 MCG PO (07:44)
[2025-08-12 07:49] LABS: Glucose - Point of Care 161 mg/dl (70-99)
[2025-08-12] MEDS: NOVOLOG FLEXPEN-MODERATE RESISTANCE 1 UNITS SC (08:46)
[2025-08-12] MEDS: IMITREX 50 MG PO (09:31)
--- NOTE | 2025-08-12 09:43 | W.PN.HOSP.TC ---
Today's Communication/Plan
-
discharge
Assessment / Plan
Assessment / Plan
Physical Exam
General:: not in distress, off BIpap Appears Chronically Ill.
HEENT: Anicteric and Moist mucous membranes
Respiratory: Clear
Cardiac: S1/S2
GI: Soft, Non Tender and Non Distended
Rectal: No Maroon Stools
Genito-urinary: Clear Urine
Musculoskeletal: No Cyanosis
Skin: Warm and Dry; No Jaundice
Neuro: Alert, awake, oriented now, following commands, ; No Slurred Speech, Facial Droop or Tremors
Psych: No Confused or Agitated, flat affect
# Acute hypoxic respiratory failure
Sepsis POA, septic shock
RLL PNA, suspect aspiration pneumonia
Known COPD
CT C/A/P done in the ED shows R base infiltrate and is otherwise unremarkable. Await formal reading.
off Oxygen support, on Bi pap
On IV Abx
Per ID:
Continue with Azithromycin through 08/16/2025
Continue cefdinir 300 mg BID through 08/16/2025.
Breathing treatment, bronchodilator Neb
Negative blood culture. Negative MRSA/ legionella & Streptococcus pneumoniae Antigen
Urine culture in negative
Appreciate ICU & ID doctors help
# Toxic metabolic encephalopathy due to hypoxia
Resolved
Back to baseline
# Migraine
Given Imitrex
#BISMARK on CKD IIIA, resolved
Hyperkalemia
Metabolic acidosis
K is normal
ok to resume Metformin
CT showed : Kidneys: No renal or ureteral calculus. Slightly distended extrarenal pelvis, right greater than left. No obstructive uropathy
Consulted nephrology
# Chronic back pain- chronic pain syndrome with opioid dependency
Back on Neurontin & Oxycodone ( held temporarily due to MS )
#anemia of chronic disease
Stable HGB
-no active bleeding
# PAD s/p L femoral bypass x 2
S/P proximal SFA stent/angioplasty
#Anxiety/depression
#DM type 2 with neuropathy
#CAD
No chets pain
#Hypothyroidism
#Essential HTN
DVT ppx on SQ heparin
#CODE STATUS
-Full code
d/w daughter Aliya at [phone], ok to discharge
Pt is requesting dc today
Total discharge time spent to see the patient on the floor, examine the patient, review data and lab results, discuss treatment plan with patient, daughter, nursing staff around 65 minutes.
Anticipated Discharge: Today
Subjective/Interval History
-
Date of Service: August 12, 2025
No chest pain
No sob
No abdominal pain
She wants migraine medicine
She is asking to go back to [place], she cant sleep in hospital
No hypoxia
Objective Data
-
Labs:
Laboratory Results
08/12/25
04:44
WBC 6.4
Hgb 9.9 L D
Hct 31.6 L
Plt Count 216 D
Sodium 138
Potassium 4.6
Chloride 106
Carbon Dioxide 31 H
BUN 23 H
Creatinine 1.0
Glucose 133 H
Calcium 9.0
Total Bilirubin 0.3
AST 20
ALT 32
Alkaline Phosphatase 63
Vital Signs:
Vital Signs
Temp Pulse Resp BP Pulse Ox
97.9 F 72 12 157/75 94
08/12/25 07:39 08/12/25 08:00 08/12/25 08:00 08/12/25 07:39 08/12/25 08:00
I&O
08/11/25 08/12/25 08/13/25
06:59 06:59 06:59
Intake Total 2029 / 2039 190 / 190
Output Total 2200 / 2850 2400 / 2400
Balance -170 / -810 -2210 / -2210
--- NOTE | 2025-08-12 10:12 | CM ---
Addendum entered by Amee Garcia 08/12/25 11:13:
Transport forms completed. I attempted to reach pt's daughter but she is in [place] at a conference per her mother. IMM reviewed and signed by pt.
Original Note:
Received message from CHLOÉ Coleman that pt is ready for discharge back to [facility]. I called [facility] and spoke to the supervisor crack off who told me they did not think she was returning. I received a call back from Rufina the Liaison at , pt is
approved to return.
Per [place], transport time is 1130. I texted Rufina with time.
[facility] report number [phone]
fax [phone]
--- NOTE | 2025-08-12 10:35 | W.PN.NEPH.PH ---
Today's Communication / Plan
-
follow BMP
Assessment/Plan
-
Assessment
Sepsis
BISMARK
Hyperkalemia
Right pneumonia
hypotension
Diabetes mellitus type 2
COPD
Plan
cap IV fluids saline
Follow BMP
Treat potassium medically prn
will s/o
-
-
Date of Service: August 12, 2025
CC / HPI / ROS
-
Chief Complaint:
BISMARK
History of Present Illness:
BISMARK/Cr down to 1.0
K lower 4.6
BP stable
Review of Systems:
no CP/SOB
Labs
-
Labs:
WBC 6.4 10^3/uL (4.8-10.8) 08/12/25 04:44
RBC 3.37 10^6/uL (4.20-5.40) L 08/12/25 04:44
Hgb 9.9 g/dL (12.0-16.0) L D 08/12/25 04:44
Hct 31.6 % (37.0-47.0) L 08/12/25 04:44
Plt Count 216 10^3/uL (130-400) D 08/12/25 04:44
Sodium 138 mmol/L (135-145) 08/12/25 04:44
Potassium 4.6 mmol/L (3.5-5.1) 08/12/25 04:44
Chloride 106 mmol/L (98-107) 08/12/25 04:44
Carbon Dioxide 31 mmol/L (22-30) H 08/12/25 04:44
BUN 23 mg/dl (7-17) H 08/12/25 04:44
Creatinine 1.0 mg/dL (0.6-1.0) 08/12/25 04:44
eGFR 59.49 08/12/25 04:44
Glucose 133 mg/dl (70-99) H 08/12/25 04:44
Calcium 9.0 mg/dl (8.4-10.2) 08/12/25 04:44
Phosphorus 2.8 mg/dl (2.5-4.5) 08/12/25 04:44
Lgj-I-Wyhavpmoafv Pept 821 pg/ml 08/09/25 21:37
Albumin 3.2 g/dl (3.5-5.0) L 08/12/25 04:44
Physical Exam
-
Vital Signs:
Vital Signs
Temp Pulse Resp BP Pulse Ox
97.9 F 72 12 157/75 94
08/12/25 07:39 08/12/25 08:00 08/12/25 08:00 08/12/25 07:39 08/12/25 08:00
Cardiovascular:: Regular rate and rhythm
Respiratory:: Bilateral: Coarse
Lung Excursion:: Normal
Abdomen:: Nontender and Soft
Bowel Sounds:: Normal
Extremity Edema:: None: Bilateral:
--- NOTE | 2025-08-12 10:56 | W.PN.PUL3 ---
Today's Communication / Plan
-
Symbicort + Spiriva; restart Trelegy upon discharge
Up OOB as tolerated
PT rec'd skilled rehab, OT rec'd return to her LTC facility
Diet as per DIRECTOR PRODUCT; VFSS possibly as an outpatient
Restarted oxycodone 10mg but lowered frequency from TID to BID as her initial CO2 retention may have been triggered from her chronic narcotic use with possible overdose
Pain control - may need to use a multimodal approach - defer this to the hospitalist/PCP
Antibiotics per ID
Follow-up cultures (NGTD)
Patient is being prepared for discharge back to her senior care at [facility]/rehab. No additional recommendations at this time. Pulmonary service will now sign off. Please reconsult if there are any additional questions/concerns, or if
patient's respiratory status deteriorates.
Assessment
-
75-year-old female with a past medical history of neurogenic bladder with VOO and DSD, left heel pressure ulcer, DM type II, hypothyroidism, hypertension, history of left lower limb cellulitis, bladder incontinence, chronic lower back pain, history
of UTI, history of dysphagia, history of COPD, anxiety, history of bacteremia, PVD and history of ND who presents from [facility] with low oxygen levels. Patient is a poor historian due to dementia. Patient went to her family's house for
Thanksgiving, and appeared fatigued and slept for most of the day. This persisted until she returned back to her facility, at which point she appeared to have blue lips and her daughter called 911 and patient was brought here to the ER for further
evaluation. Initially in the ER, patient was febrile to 100.9 �F (via oral thermometer), pulse rate 106, respiratory rate 20, BP 115 over the 8 and she was initially saturating 86% on room air, which improved to 93-95% on 4 L/min. She did become
hypotensive about 1 hour later with pressures in the 70�80s/20-30s. Initial blood work showed leukocytosis to 13.5, anemia at 11.2, and absolute eosinophil count of 500, initial blood gas showed mild acute on chronic hypercapnia with pH 7.33, pCO2
58. Initial potassium was 7.0, with serum bicarbonate level 33, creatinine 2.0, glucose 189, lactate 2.2, and troponin 0.017 with proBNP 821. Flu swab negative and COVID-19 antigen negative. Blood cultures and urine cultures collected. CXR
showed no evidence of an acute cardiopulmonary process. CT chest/abdomen/pelvis was obtained showing a suspected right lower lobe pneumonia with reactive mild inguinal adenopathy and no obstructive uropathy. Also constipation with moderate colonic
fecal burden without bowel obstruction. In the ER she was given 2 L IVF with NS 0.9%, 60 mg Solu-Medrol, DuoNebs, 10 units regular insulin with 1 amp D50, Rocephin and Zithromax. Due to her blood gas findings with concern for acute hypercapnia,
she was placed onto BiPAP and then admitted to the ICU for further care. [employer] service consulted for additional management/recommendations.
Impression:
#Acute on chronic hypercapnic respiratory failure requiring continuous BiPAP - acute component now resolved and she is on room air with mental status back to baseline
#Acute hypoxic respiratory failure - markedly improved
#Right lower lobe pneumonia, likely due to aspiration
#BISMARK superimposed on CKD (baseline creatinine approximately 1.2) with acute on chronic hyperkalemia (baseline K 4.7 - 5.1) - BISMARK and hyperkalemia now both resolved as of 08/12
#Acute on chronic anemia (baseline Hb 10 � 11.5) - Hb now back to her baseline
#Transaminitis (mild) -resolved
#History of dementia
#PAD
#DM type II
#History of COPD (does not follow us in [facility] office)
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
Plan:
- Patient initially transferred to the ICU due to acute on chronic hypercapnia with poor mental status likely due to CO2 narcosis
- Unclear if she developed this due to her narcotic usage with possible over-dose, or if she had an underlying infection (i.e. pneumonia) that then contributed to her AMS
- Patient has markedly improved, now awake and alert, back to her baseline
- CT head on 08/10 showed no acute intracranial abnormalities besides a prior right sided parietal lobe infarct
- Maintain SpO2 88-95%, using supplemental O2 if needed
- Blood gas this morning shows adequate ventilation indicating she does not need BiPAP at night. Obviously, this could change especially if going forward she develops another episode of altered mental status due to either an infection or somnolence
from narcotic use. I did restart her oxycodone yesterday but lowered frequency to 10 mg BID from 10mg TID. I will defer additional titrations to her hospitalist and she should be getting follow-up as an outpatient as well from whichever doctor
started this medication for her
- Need to find a balance between treating her pain without increasing risk of CO2 retention
- Aspiration precautions, keeping HOB >30-45�
- Seen by DIRECTOR PRODUCT on 08/10, and cleared for regular solids/thin liquids. Plan was to check a video swallow evaluation on 08/13, however this is a moot point as pt now being discharged
- Perhaps an outpatient VSE can be done to evaluate for silent aspiration
- Given concern for RLL CAP, continue with antibiotics with Cefdnir + Zithromax s/p rocephin x 2 doses and IV vanco x1 dose
- ID consulted and recs appreciated
- Defer duration of Abx to ID
- Follow-up blood cultures (NGTD); urine antigens for Legionella + strep pneumonia both negative; check sputum culture if patient can produce a decent sample
- MRSA swab is negative
- Trend WBC and monitor temperature curve
- Patient is prescribed Trelegy as an outpatient
- We had initially changed her to DuoNebs and budesonide because she was too altered to properly take MDI or SMI
- Now that she is back to her baseline mental status, continue Symbicort and Spiriva with prn albuterol; resume Trelegy upon discharge
- prn nebulized bronchodilators - not currently bronchospastic
- Trend serum creatinine and monitor UOP (she has a purewick on currently as she is incontinent to urine)
- Considering she has chronic hyperkalemia,transtubular potassium gradient checked, and was 4, suggesting hypoaldosteronism. Cortisol level is WNL at 9.7 (checked on AM of 08/11/2025); aldosterone and renin levels are pending - -> rec'd her PCP to
follow these up as she may need to start florinef +/- diuretics and/or cation-exchange resins)
- Renally dose all meds; trend [K] level, temporizing with insulin/D50 if needed; would be careful giving Kayexalate as she had constipation with moderate fecal burden seen on CT A/P
- Continue bowel regimen given chronic narcotic use, as she had constipation seen on CT A/P
- Maintain MAP>65
- Replete electrolytes with K>4, Mg>2
- Maintain euglycemia with goal BG 140-180; HbA1c: 7.3 on 09/20/2022 - -> A1C 7.2% (08/11/2025)
- Trend H/H and transfuse if needed to keep Hb>7g/dL; keep plt>20k, unless there is concern for bleeding then keep plt>50k
- Incentive spirometer encouraged 10x per hour for at least 4 hrs a day
- DVT ppx: HSQ
Patient is being prepared for discharge back to her senior care at [facility]. No additional recommendations at this time. Pulmonary service will now sign off. Thank you for allowing us to be involved in the care of this patient. Please
reconsult if there are any additional questions/concerns, or if patient's respiratory status deteriorates.
Total time spent today was 38 minutes for this encounter. Time includes reviewing laboratory test/imaging results, reviewing pertinent medical records, obtaining and reviewing medical history, performing an appropriate exam, ordering medications,
tests and procedures. Time also includes documentation of this encounter, coordinating patient care and communicating with other healthcare professionals. Total time does not include separately billed tests performed on this date of service.
Subjective Data
-
Date of Service:
Date of Service: August 12, 2025
Chief Complaint: Pulmonary Follow Up
Subjective:
Patient seen this morning at bedside. Migraine reported this morning. Resolved with Imitrex. Afebrile overnight. Being prepared for discharge back to her senior care. Blood gas this morning showed adequate ventilation with pH 7.39, pCO2 48 and
she did not wear BiPAP overnight. Currently on room air saturating 95%
Review of Systems
General: Other (Negative unless mentioned above)
Objective Data
Data Reviewed
Vital Signs / I&O / Oxygen:
Vital Signs
Temp Pulse Resp BP Pulse Ox
97.9 F 72 12 157/75 94
08/12/25 07:39 08/12/25 08:00 08/12/25 08:00 08/12/25 07:39 08/12/25 08:00
Intake and Output
08/11/25 08/12/25 08/13/25
06:59 06:59 06:59
Intake Total 2029 / 2039 190 / 190
Output Total 2200 / 2850 2400 / 2400
Balance -170 / -810 -2210 / -2210
SaO2 94
Nasal Cannula flow liters per 2
minute
Physical Exam
General: Respiratory Distress (negative), Comfortable, Chills (negative) and Sweats (negative)
HEENT: Normocephalic and Anicteric
Cardiovascular: S1-S2 and Peripheral Edema (negative)
Respiratory: Wheeze (negative), Crackles (Right base), Rhonchi (negative), Non-Labored Respirations and Other (Poor inspiratory effort)
GI: Soft, Non Distended and Normal Bowel Sounds
Neurology: Awake, Alert and Tremors (negative)
Skin: Warm, Dry, Cyanosis (negative) and Jaundice (negative)
Labs/Micro/Reports
Lab Data
08/12/25 04:44
08/12/25 04:44
Microbiology
08/09/25 18:54 Blood/Venous Blood Culture - Preliminary
No Growth in 48 hours- Final report to follow
08/09/25 18:45 Blood/Venous Blood Culture - Preliminary
No Growth in 48 hours- Final report to follow
08/10/25 09:23 Nose MRSA Screen - Final
No Methicillin Resistant Staphylococcus aureus isolated.
08/10/25 13:37 Urine Legionella Urinary Antigen - Final
Negative for Legionella pneumophila Serogroup 1 antigen.
A negative result does not rule out the possiblity of
Legionella infection due to other serogroups or species of
Legionella. Clinical correlation is recommended.
08/10/25 13:37 Urine Streptococcus pneumoniae Antigen (M - Final
Negative for Streptococcus pneumoniae antigen.
A negative result does not exclude infection with
Streptococcus pneumoniae. Clinical correlation is
recommended.
08/09/25 19:12 Urine Urine Culture - Final
NO GROWTH
08/09/25 21:37 Nose Nasal Screen MRSA (PCR) - Final
MRSA not detected - performed by PCR methodology.
08/09/25 18:33 Nasal Swab Influenza Types A & B (SHANA) - Final
Negative for Influenza A & B, NAAT
Negative results must be combined with clinical observations
and patient history.
Nucleic Acid Amplification test (NAAT)performed on the
[employer] platform.
[2025-08-12 11:14] VITALS: BP 156/84
--- NOTE | 2025-08-12 11:42 | W.DCSUMMARY ---
Discharge Summary
Discharge Data
Date of Admission: 08/09/25
Date of Discharge: 08/12/25
-
Pending Results: No
Hospital Course
75 years old female admitted with change in mental status, hypoxia. Patient lives snf was taking out to her family home for Thanksgiving dinner and during the whole time she was noticed to be lethargic. Upon bringing her back to nursing
home, she was noticed to have continued lethargy, weakness and hypoxia. Patient arrived to the hospital and was diagnosed with leukocytosis, acidosis, acute kidney injury, hyperkalemia, hypercapnic and hypoxic respiratory insufficiency and was
admitted to the intensive care unit. She received noninvasive ventilation therapy with BiPAP. She received intravenous fluid, intravenous antibiotics. She met the criteria of sepsis. Her source of infection felt to be right lower lobe pneumonia
which was consistent with aspiration event. Patient takes opioid pain medication in addition to psychiatry medications with Neurontin. All her medications including oxycodone were held until mental status improved. She was followed by pulmonary,
nephrology and ID doctors. Subsequent cultures including blood did not show any growth. Antibiotic course was changed to oral antibiotic. Scan of the head did not show acute findings. Her mental status returned back to normal and was a placed
back on her pain medications but reduced the dose of oxycodone from 10 mg 3 times a day to 10 mg twice a day. Patient remained hemodynamically stable. She was able to follow commands and she was evaluated by physical therapy. She was evaluated by
speech therapist and recommended regular diet. Patient was able to tolerate diet. Kidney function improved and did not need further intravenous fluid. Patient requested to go back to her place as she was not able to feel comfortable or sleep
well. Discharge plan was discussed with patient and her daughter, discharge instructions were placed and patient was discharged back to [facility] in a stable condition. She will finish antibiotic for treatment of pneumonia.
Discharge Plan
-
Patient Disposition: [facility]/SNF
Discharge Diagnosis/Procedures:
#BISMARK, resolved.
#Sepsis : Fever, Right lower lobe pneumonia, likely due to aspiration
Leukocytosis, Hypotension: Finish course of oral antibiotic
#Migraine
#Acute on chronic hypercapnic respiratory failure requiring continuous BiPAP - acute component now resolved and she is on room air with mental status back to baseline.
Acute hypoxic respiratory failure - markedly improved
#BISMARK superimposed on CKD
#Acute on chronic anemia
#Transaminitis (mild) -
#History of dementia
#PAD
#DM type II
#History of COPD (does not follow us in [facility] office)
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
# Chronic pain syndrome with opioid dispensing. We reduced the dose of oxycodone to twice daily instead of 3 times a day due to lethargy and risk of aspiration.
Diet: As tolerated and Diabetic, Carb Controlled
Referrals:
Greyson Hilliard MD [Active, Pulmonary Medicine] - in one to two weeks
Estela Duncan MD [Family Provider, Family Practice]
Prescriptions:
New
cefdinir 300 mg Capsule
300 mg PO Q12 Qty: 9 0RF
azithromycin 250 mg Tablet
500 mg PO DAILY Qty: 4 0RF
Continued
trazodone 50 MG tablet
50 mg PO HS
clopidogrel 75 MG tablet
75 mg PO DAILY
aspirin 81 MG tablet,delayed release (DR/EC)
81 mg PO DAILY
atorvastatin 10 MG tablet
10 mg PO HS
ferrous sulfate [FeroSul] 325 MG tablet
325 mg PO DAILY
acetaminophen 325 mg Tablet
325 mg PO Q6HPRN PRN (Reason: mild pain)
albuterol sulfate 90 mcg/actuation Hfa Aerosol Inhaler
2 puff INHALATION R Q6HPRN PRN (Reason: sob/wheezing)
Trelegy Ellipta 100-62.5-25 mcg Blister With Device
1 inh INHALATION R DAILY
carvedilol 3.125 mg tablet
3.125 mg PO BID
gabapentin 100 mg capsule
100 mg PO DAILY@1200
buspirone 5 mg Tablet
5 mg PO BID
metformin 500 mg Tablet
500 mg PO BID
donepezil [Aricept] 5 mg Tablet
5 mg PO HS
lidocaine 4 % Adhesive Patch,Medicated
3 patch TOPICAL DAILY
sumatriptan succinate [Imitrex] 100 mg Tablet
0 mg PO .COMPLEX
Rx Instructions:
take 1 tab at onset of headache; if no relief, may repeat 1 tab after at least 2 hrs; max = 2 tabs/24 hrs
cyanocobalamin (vitamin B-12) 1,000 mcg Tablet
1,000 mcg PO DAILY
magnesium hydroxide [Milk of Magnesia] 400 mg/5 mL Suspension
2,400 mg PO HSPRN PRN (Reason: if no bm by 3rd day)
carboxymethylcellulose sodium [Refresh Tears] 0.5 % Drops
1 drp BOTH EYES TID
fluvoxamine 100 mg Tablet
100 mg PO HS
insulin aspart U-100 100 unit/mL Solution
1 sliding scale dose SC AC
Rx Instructions:
151-200=2units, 201-250=3units, 351-300=4units
magnesium oxide 500 mg magnesium Tablet
500 mg PO BID
gabapentin 300 mg Capsule
300 mg PO BID
folic acid 1 mg Tablet
1 mg PO DAILY
hydroxyzine HCl 10 mg Tablet
10 mg PO HS
ipratropium bromide 21 mcg (0.03 %) [place],Non-Aerosol
2 spray INTRANASAL BID
levothyroxine [Synthroid] 112 mcg Tablet
112 mcg PO DAILY
melatonin 1 mg Tablet
8 mg PO HS
Saccharomyces boulardii [Florastor] 250 mg Capsule
250 mg PO BID
Banatrol Plus Powder In Packet
1 ea PO DAILYPRN PRN (Reason: dirrhea)
diclofenac sodium 1 % Gel
0 g TOPICAL Q4HPRN PRN (Reason: lower back)
mirabegron [Myrbetriq] 25 mg Tablet Extended Release 24 Hr
25 mg PO DAILY
acetaminophen 500 mg tablet
1,000 mg PO TID
pantoprazole 40 MG tablet,delayed release (DR/EC)
40 mg PO DAILY
bupropion HCl 150 mg tablet extended release 24 hr
150 mg PO BID
Changed
oxycodone 5 mg tablet
10 mg PO BID Qty: 0 0RF
Discharge Orders:
Discharge Patient (As Directed); Ordered 08/12/25
Ordered By: Michell White
Discharge Date and Time
Print Language: PERSIAN
--- NOTE | 2025-08-12 11:53 | PTCARENOTE ---
Report called as charted to Yinka Schrader at [facility] [phone]. Pt only had blanket, shoes, dentures, cell phone and independent agent music education. No clothes in room. Dr White called daughter and she approved discharge.
[2025-08-13 17:55] LABS: Renin Activity Results 0.2 ng/mL/hr
== END 2025-08-12 12:10 | DRG 871 ==
LOC: ICU 20:59
PROVIDERS: Clinical Nurse Specialist Family Health; Nurse Practitioner Family; ADMITTING PHYSICIAN Hospitalist; ATTENDING PHYSICIAN Internal Medicine; CONSULT PHYSICIAN Internal Medicine Critical Care Medicine; EMERGENCY PHYSICIAN Emergency Medicine; FAMILY PHYSICIAN Family Medicine; OTHER PHYSICIAN Internal Medicine Infectious Disease; OTHER PHYSICIAN Specialist
PROC: 5A09357 Assistance with Respiratory Ventilation, Less than 24 Consecutive Hours, Continuous Positive Airway Pressure (ICD-10-PCS; 2025-08-09)
DX: A41.9 Sepsis, unspecified organism (principal); J69.0 Pneumonitis due to inhalation of food and vomit; J96.21 Acute and chronic respiratory failure with hypoxia; J96.22 Acute and chronic respiratory failure with hypercapnia; R65.21 Severe sepsis with septic shock; N17.9 Acute kidney failure, unspecified; J44.0 Chronic obstructive pulmonary disease with (acute) lower respiratory infection; F01.A18 Vascular dementia, mild, with other behavioral disturbance; F01.A4 Vascular dementia, mild, with anxiety; F01.A3 Vascular dementia, mild, with mood disturbance; E87.20 Acidosis, unspecified; F11.20 Opioid dependence, uncomplicated; G93.49 Other encephalopathy; N18.32 Chronic kidney disease, stage 3b; E11.51 Type 2 diabetes mellitus with diabetic peripheral angiopathy without gangrene; E11.40 Type 2 diabetes mellitus with diabetic neuropathy, unspecified; G89.4 Chronic pain syndrome; N31.9 Neuromuscular dysfunction of bladder, unspecified; N32.0 Bladder-neck obstruction; N36.44 Muscular disorders of urethra; Z79.84 Long term (current) use of oral hypoglycemic drugs; Z79.899 Other long term (current) drug therapy; E87.5 Hyperkalemia; I25.10 Atherosclerotic heart disease of native coronary artery without angina pectoris; F32.9 Major depressive disorder, single episode, unspecified; G47.00 Insomnia, unspecified; N32.81 Overactive bladder; E03.9 Hypothyroidism, unspecified; K21.9 Gastro-esophageal reflux disease without esophagitis; Z87.891 Personal history of nicotine dependence; R13.10 Dysphagia, unspecified; Z79.82 Long term (current) use of aspirin; Z79.4 Long term (current) use of insulin; Z79.890 Hormone replacement therapy; Z79.02 Long term (current) use of antithrombotics/antiplatelets; Z86.73 Personal history of transient ischemic attack (TIA), and cerebral infarction without residual deficits; D63.1 Anemia in chronic kidney disease; E11.22 Type 2 diabetes mellitus with diabetic chronic kidney disease; E78.00 Pure hypercholesterolemia, unspecified; G43.909 Migraine, unspecified, not intractable, without status migrainosus; I12.9 Hypertensive chronic kidney disease with stage 1 through stage 4 chronic kidney disease, or unspecified chronic kidney disease; I25.2 Old myocardial infarction; Z11.52 Encounter for screening for COVID-19
CPT/HCPCS: 36600; 51701; 70450; 71045; 71250; 74176; 80048; 80053; 80202; 81003; 81015; 82088; 82533; 82550; 82805; 82962; 83036; 83605; 83735; 83880; 83930; 83935; 84100; 84132; 84133; 84244; 84300; 84484; 85014; 85018; 85025; 85379; 85610; 85730; 87040; 87070; 87086; 87449; 87502; 87641; 87811; 87899; 92610; 93005; 93971; 94640; 94660; 96361; 96365; 96367; 96375; 97163; 97166; 99291